=== PATIENT | male | born 1965 | race Caucasian/White ===

== ENCOUNTER 2023-07-04 03:07 | Inpatient (IN) | payer MEDICARE, OTHER ==
[2023-07-04] MEDS ORDERED: IPRATROPIUM 0.5 MG/2.5 ML NEBU INHALATION STA ×2 (03:20→04:24)
[2023-07-04] MEDS ORDERED: ALBUTEROL NEBULIZED 2.5 MG/3 ML INHALATION STA ×2 (03:20→04:24)
[2023-07-04] MEDS ORDERED: DEXAMETHASONE SOD PHOSPHATE 10 MG/ML 1 ML VIAL IV STA (03:20)
--- NOTE | 2023-07-04 03:23 | ED ---
General Adult HPI - General Chief complaint: Shortness of Breath Stated complaint: RSV Time Seen by Provider: 07/04/23 03:13 Source: patient, family Mode of arrival: wheelchair Limitations: physical limitation - History of Present Illness Initial comments: Dictation was produced using [employer] dictation software. please excuse any grammatical, word or spelling errors. Chief Complaint: 57-year-old male with history of Down's syndrome presents to the ER for dyspnea History of Present Illness: Is 57-year-old male has history of Down syndrome. He has no history of lung or cardiac comorbidities. This been having shortness of breath for the last 4 days. Went to see his primary care doctor tested positive for RSV. He has had one dose of prednisone and one breathing treatment. His work breathing increased prompting family to bring patient to the emergency department. The ROS documented in this emergency department record has been reviewed and confirmed by me. Those systems with pertinent positive or negative responses have been documented in the HPI. All other systems are other negative and/or noncontributory. - Related Data Home Medications Medication Instructions Recorded Confirmed Cetirizine HCl [Zyrtec] 10 mg PO DAILY 04/24/16 04/25/16 Cholecalciferol [Vitamin D3] 2,000 unit PO DAILY 04/24/16 04/25/16 Fluticasone Nasal [place] [Flonase 2 spr EA NOSTRIL DAILY PRN 04/24/16 04/25/16 Nasal [place]] Folic Acid 1 mg PO DAILY 04/24/16 04/25/16 Levothyroxine Sodium [Synthroid] 50 mcg PO 1900 04/24/16 04/25/16 metHOTREXate sodium [Methotrexate] 25 mg PO SA 04/24/16 04/25/16 Allergies Allergy/AdvReac Type Severity Reaction Status Date / Time No Known Allergies Allergy Verified 07/04/23 03:11 Review of Systems ROS Statement: Those systems with pertinent positive or pertinent negative responses have been documented in the HPI. ROS Other: All systems not noted in ROS Statement are negative. Past Medical History Past Medical History: Liver Disease, Rheumatoid Arthritis (RA), Skin Disorder, Thyroid Disorder Additional Past Medical History / Comment(s): "fatty liver", fluid in both ears, psoriasis, downs syndrome History of Any Multi-Drug Resistant Organisms: None Reported Past Surgical History: Joint Replacement Additional Past Surgical History / Comment(s): left hip replacement, Past Anesthesia/Blood Transfusion Reactions: No Reported Reaction Past Psychological History: Anxiety Smoking Status: Never smoker Past Alcohol Use History: None Reported Past Drug Use History: None Reported - Past Family History Sister(s) Family Medical History: Cancer, Deep Vein Thrombosis (DVT), Pulmonary Embolus Additional Family Medical History / Comment(s): thyroid,cervical,skin Brother(s) Family Medical History: Blood Disorder, Cancer Additional Family Medical History / Comment(s): esophageal,breast, family hx of anticardiolipin antibody General Exam - General Exam Comments Initial Comments: PHYSICAL EXAM: General Impression: Alert and oriented, dyspneic HEENT: Normocephalic atraumatic, extra-ocular movements intact, pupils equal and reactive to light bilaterally, mucous membranes moist. Cardiovascular: Heart regular rate and rhythm Chest: Diffuse wheezing, retracting Abdomen: abdomen soft, non-tender, non-distended, no organomegaly Musculoskeletal: Pulses present and equal in all extremities, no peripheral edema Motor: no focal deficits noted Neurological: CN II-XII grossly intact, no focal motor or sensory deficits noted Skin: Intact with no visualized rashes Psych: Normal affect and mood Limitations: physical limitation Course Vital Signs 07/04/23 07/04/23 07/04/23 03:09 03:11 03:27 Temperature 98.5 F Pulse Rate 103 H 90 84 Respiratory 32 H 34 H Rate Blood Pressure 142/76 O2 Sat by Pulse 80 L 98 Oximetry 07/04/23 07/04/23 07/04/23 03:39 04:16 04:32 Temperature Pulse Rate 87 92 84 Respiratory 40 H 33 H 42 H Rate Blood Pressure 103/74 O2 Sat by Pulse Oximetry 07/04/23 07/04/23 05:00 05:24 Temperature Pulse Rate 81 85 Respiratory 32 H 26 H Rate Blood Pressure 115/62 O2 Sat by Pulse 95 Oximetry Medical Decision Making - Medical Decision Making Was pt. sent in by a medical professional or institution (, PA, SENIOR ENTERPRISE ARCHITECT, urgent care, hospital, or care home...) When possible be specific @ -No Did you speak to anyone other than the patient for history (EMS, parent, family, police, friend...)? What history was obtained from this source @ -With mother who provides is present illness as described above Did you review nursing and triage notes (agree or disagree)? Why? @ -I reviewed and agree with nursing and triage notes Were old charts reviewed (outside hosp., previous admission, EMS record, old EKG, old radiological studies, urgent care reports/EKG's, care home records)? Report findings @ -No old charts were reviewed Differential Diagnosis (chest pain, altered mental status, abdominal pain women, abdominal pain men, vaginal bleeding, musculoskeletal, weakness, fever, dyspnea, syncope, headache, dizziness, GI bleed, back pain, seizure, CVA, palpatations, mental health)? @ -Differential Dyspnea: Coronary syndrome, arrhythmia, tamponade, asthma, COPD, pulmonary embolism, pneumonia, pneumothorax, pulmonary effusion, anaphylaxis, diabetic ketoacidosis, flailed chest, pulmonary contusion, diaphragmatic rupture, anemia, neuromuscular, this is not meant to be an all-inclusive list. EKG interpreted by me (3pts min.). @ -See above X-rays interpreted by me (1pt min.). @ -2 view chest x-ray shows infiltrate in the left lower lobe CT interpreted by me (1pt min.). @ -None done U/S interpreted by me (1pt. min.). @ -None done What testing was considered but not performed or refused? (CT, X-rays, U/S, labs)? Why? @ -None What meds were considered but not given or refused? Why? @ -None Did you discuss the management of the patient with other professionals (professionals i.e. , PA, SENIOR ENTERPRISE ARCHITECT, lab, RT, psych nurse, social media assistant, theatrical scenic designer, teacher, juvenile justice officer, case management assistant)? Give summary @ -Case discussed with hospitalist for admission Was smoking cessation discussed for >3mins.? @ -No Was critical care preformed (if so, how long)? @ -No Were there social determinants of health that impacted care today? How? (Homelessness, low income, unemployed, alcoholism, drug addiction, transportation, low edu. Level, literacy, decrease access to med. care, nursing home, rehab)? @ -No Was there de-escalation of care discussed even if they declined (Discuss DNR or withdrawal of care, Hospice)? DNR status @ -No What co-morbidities impacted this encounter? (DM, HTN, Smoking, COPD, CAD, Can cer, CVA, ARF, Chemo, Hep., AIDS, mental health diagnosis, sleep apnea, morbid obesity)? @ -None Was patient admitted / discharged? Hospital course, mention meds given and route, prescriptions, significant lab abnormalities, going to OR and other pertinent info. @ -7-year-old male presents emergency Department with respiratory failure. Vit al signs upon arrival shows tachypneic male that is initially hypoxic. He responded well to nasal cannula oxygen. He is however is required breathing treatments. Patient reevaluated at bedside and 60 IM with improvement after multiple breathing treatments. Laboratory evaluation obtained. Leukocytosis of 14.4, coag panel within acceptable limits. Lactic acidosis of 3.0. Troponin of 0.081 BNP is 589, positive for RSV and COVID-19. X-ray shows questionable infiltrate to the left lower lobe. Patient currently with antibiotics will be admitted with consultation to pulmonology. Undiagnosed new problem with uncertain prognosis? @ -No Drug Therapy requiring intensive monitoring for toxicity (Heparin, Nitro, Insulin, Cardizem)? @ -No Were any procedures done? @ -No Diagnosis/symptom? Acute, or Chronic, or Acute on Chronic? Uncomplicated (without systemic symptoms) or Complicated (systemic symptoms)? @ -Respiratory failure Side effects of treatment? @ -No Exacerbation, Progression, or Severe Exacerbation? @ -No Poses a threat to life or bodily function? How? (Chest pain, USA, NC, pneumonia, PE, COPD, DKA, ARF, appy, cholecystitis, CVA, Diverticulitis, Homicidal, Suicidal, threat to staff... and all critical care pts) @ -yes - Lab Data Result diagrams: 07/04/23 03:22 07/04/23 03:22 Lab Results 07/04/23 07/04/23 07/04/23 Range/Units 03:20 03:22 03:22 WBC 14.4 H (3.8-10.6) k/uL RBC 4.71 (4.30-5.90) m/uL Hgb 16.2 (13.0-17.5) gm/dL Hct 50.3 (39.0-53.0) % MCV 106.8 H (80.0-100.0) fL MCH 34.4 (25.0-35.0) pg MCHC 32.2 (31.0-37.0) g/dL RDW 14.3 (11.5-15.5) % Plt Count 124 L (150-450) k/uL MPV 8.5 Neutrophils % 86 % Lymphocytes % 10 % Monocytes % 2 % Eosinophils % 0 % Basophils % 0 % Neutrophils # 12.4 H (1.3-7.7) k/uL Lymphocytes # 1.4 (1.0-4.8) k/uL Monocytes # 0.3 (0-1.0) k/uL Eosinophils # 0.0 (0-0.7) k/uL Basophils # 0.1 (0-0.2) k/uL Macrocytosis Moderate PT (10.0-12.5) sec INR (<1.2) APTT (22.0-30.0) sec Sodium 139 (137-145) mmol/L Potassium 4.8 (3.5-5.1) mmol/L Chloride 103 (98-107) mmol/L Carbon Dioxide 24 (22-30) mmol/L Anion Gap 12 mmol/L BUN 19 (9-20) mg/dL Creatinine 1.00 (0.66-1.25) mg/dL Est GFR (CKD-EPI)AfAm >90 (>60 ml/min/1.73 sqM) Est GFR (CKD-EPI)NonAf 83 (>60 ml/min/1.73 sqM) Glucose 187 H (74-99) mg/dL Plasma Lactic Acid Karl (0.7-2.0) mmol/L Calcium 8.3 L (8.4-10.2) mg/dL Total Bilirubin 0.8 (0.2-1.3) mg/dL AST 150 H (17-59) U/L ALT 127 H (4-49) U/L Alkaline Phosphatase 87 (38-126) U/L Troponin I (0.000-0.034) ng/mL NT-Pro-B Natriuret Pep 589 pg/mL Total Protein 8.3 H (6.3-8.2) g/dL Albumin 3.8 (3.5-5.0) g/dL Influenza Type A (PCR) Not Detected (Not Detectd) Influenza Type B (PCR) Not Detected (Not Detectd) RSV (PCR) Detected A (Not Detectd) SARS-CoV-2 (PCR) Detected A (Not Detectd) 07/04/23 07/04/23 07/04/23 Range/Units 03:22 03:22 03:22 WBC (3.8-10.6) k/uL RBC (4.30-5.90) m/uL Hgb (13.0-17.5) gm/dL Hct (39.0-53.0) % MCV (80.0-100.0) fL MCH (25.0-35.0) pg MCHC (31.0-37.0) g/dL RDW (11.5-15.5) % Plt Count (150-450) k/uL MPV Neutrophils % % Lymphocytes % % Monocytes % % Eosinophils % % Basophils % % Neutrophils # (1.3-7.7) k/uL Lymphocytes # (1.0-4.8) k/uL Monocytes # (0-1.0) k/uL Eosinophils # (0-0.7) k/uL Basophils # (0-0.2) k/uL Macrocytosis PT 12.9 H (10.0-12.5) sec INR 1.2 H (<1.2) APTT 24.0 (22.0-30.0) sec Sodium (137-145) mmol/L Potassium (3.5-5.1) mmol/L Chloride (98-107) mmol/L Carbon Dioxide (22-30) mmol/L Anion Gap mmol/L BUN (9-20) mg/dL Creatinine (0.66-1.25) mg/dL Est GFR (CKD-EPI)AfAm (>60 ml/min/1.73 sqM) Est GFR (CKD-EPI)NonAf (>60 ml/min/1.73 sqM) Glucose (74-99) mg/dL Plasma Lactic Acid Karl 3.0 H* (0.7-2.0) mmol/L Calcium (8.4-10.2) mg/dL Total Bilirubin (0.2-1.3) mg/dL AST (17-59) U/L ALT (4-49) U/L Alkaline Phosphatase (38-126) U/L Troponin I 0.081 H* (0.000-0.034) ng/mL NT-Pro-B Natriuret Pep pg/mL Total Protein (6.3-8.2) g/dL Albumin (3.5-5.0) g/dL Influenza Type A (PCR) (Not Detectd) Influenza Type B (PCR) (Not Detectd) RSV (PCR) (Not Detectd) SARS-CoV-2 (PCR) (Not Detectd) Disposition Clinical Impression: Respiratory failure Disposition: ADMITTED IP TO THIS [facility] Condition: Serious Referrals: Jamin Medina DO [Primary Care Provider] - 1-2 days Decision Time: 06:02
[2023-07-04 04:05] LABS: Basophils # (A) 0.1 k/uL (0-0.2); Basophils % (A) 0 %; Eosinophils % (A) 0 %; HCT 50.3 % (39.0-53.0); HGB 16.2 gm/dL (13.0-17.5); Lymphocytes # (A) 1.4 k/uL (1.0-4.8); Lymphocytes % (A) 10 %; MCH 34.4 pg (25.0-35.0); MCHC 32.2 g/dL (31.0-37.0); MCV 106.8 fL (80.0-100.0); Macrocytosis Moderate; Mean Platelet Volume 8.5; Monocytes # (A) 0.3 k/uL (0-1.0); Monocytes % (A) 2 %; Neutrophils # (A) 12.4 k/uL (1.3-7.7); Neutrophils % (A) 86 %; Platelet Count 124 k/uL (150-450); RBC 4.71 m/uL (4.30-5.90); RDW 14.3 % (11.5-15.5); WBC 14.4 k/uL (3.8-10.6)
[2023-07-04 04:14] LABS: INR 1.2 (<1.2); Prothrombin Time 12.9 sec (10.0-12.5)
[2023-07-04 04:38] LABS: ALT 127 U/L (4-49); African American GFR (CKD) >90 (>60 ml/min/1.73 sqM); Albumin 3.8 g/dL (3.5-5.0); Anion Gap 12 mmol/L; Blood Urea Nitrogen 19 mg/dL (9-20); Calcium 8.3 mg/dL (8.4-10.2); Carbon Dioxide 24 mmol/L (22-30); Chloride 103 mmol/L (98-107); Glucose 187 mg/dL (74-99); Non-African American GFR(CKD) 83 (>60 ml/min/1.73 sqM); Sodium 139 mmol/L (137-145); Total Bilirubin 0.8 mg/dL (0.2-1.3); Total Protein 8.3 g/dL (6.3-8.2)
[2023-07-04] MEDS: MAGNESIUM SULFATE-D5W PMX 1 GM in DEXTROSE/WATER 1 100ML.BAG IVPB SCH ×2 (04:40→05:44)
[2023-07-04 04:48] LABS: NT-Pro-B-Type Natriuretic Pept 589 pg/mL
[2023-07-04 04:51] LABS: AST 150 U/L (17-59); Alkaline Phosphatase 87 U/L (38-126); Potassium 4.8 mmol/L (3.5-5.1)
[2023-07-04] MEDS ORDERED: PIPERACILLIN-TAZOBACTAM 3.375 GM in SODIUM CHLORIDE 0.9% 100 ML IVPB STA (05:30)
[2023-07-04] MEDS ORDERED: NALOXONE 0.4 MG/ML 1 ML VIAL IVP PRN ×2 (05:57→07:23)
[2023-07-04] MEDS ORDERED: ACETAMINOPHEN TAB 325 MG TAB PO PRN (07:23)
[2023-07-04] MEDS ORDERED: ALBUTEROL HFA INHALER INHALATION PRN (07:24)
[2023-07-04] MEDS ORDERED: ASPIRIN 81 MG PO STA (07:26)
--- NOTE | 2023-07-04 07:46 | XR ---
EXAMINATION TYPE: XR chest 1V portable DATE OF EXAM: 07/04/2023 Comparison: 11/24/2009 Clinical History: 57-year-old male with wheezing Findings: Heart borderline in size. Lordotic positioning. No roxanna consolidation or pleural effusion seen. Impression: Borderline heart size. Lordotic positioning. No definite acute process.
[2023-07-04] MEDS ORDERED: IPRATROPIUM-ALBUTEROL 3 ML NEB INHALATION SCH (08:00)
[2023-07-04] MEDS: AZITHROMYCIN 500 MG TAB PO SCH (08:50)
[2023-07-04] MEDS ORDERED: REMDESIVIR 200 MG in SODIUM CHLORIDE 0.9% 250 ML IVPB ONE (09:00)
[2023-07-04 09:58] LABS: C Reactive Protein 3.7 mg/dL (<1.0)
[2023-07-04] MEDS: ALBUTEROL HFA INHALER INHALATION SCH ×3 (11:04→19:54)
--- NOTE | 2023-07-04 14:55 | P.HPIM ---
History of Present Illness H&P Date: 07/04/23 Chief Complaint: dyspnea 57-year-old man with a history of Down syndrome, hypothyroidism presented for evaluation of dyspnea. 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 Prior to arrival, patient's family noticed significant increased work of breathing and therefore brought patient to the emergency room for further evaluation. Patient has had fevers, chills. Jonnie borrero's review of systems is otherwise negative, though patient is not a reliable historian per family member. In the emergency room, patient was afebrile, 142/76, heart rate 103, 80% on room air. CBC demonstrated leukocytosis of 14.4. Basic metabolic panel is unremarkable. Liver function test showed elevation of AST 150, L2 to 1 127, total protein 8.3. LDH was 266, troponins 0.094, CRP was 3.7, d-dimer was 0.8 to. INR is 1.2. Influenza A, B were negative. RSV was positive. Covid was positive. EKG shows sinus rhythm with left axis deviation. Chest x-ray shows pleural and cardia megaly with increased reticular opacities bilaterally. Gen: in no apparent distress, resting comfortably in bed Eyes: PERRL, no scleral injection or icterus HENT: normocephalic, atraumatic, good hearing acuity, moist mucous membranes Neck: no tracheal deviation, full range of motion Resp: Tachypneic, mild accessory muscle use, no tactile fremitus, diffuse wheezing CVS: good distal perfusion x 4, no pitting edema GI: soft, NTTP, ND, no hepatosplenomegaly : no suprapubic tenderness, no CVAT, varma catheter not present MSK: no clubbing, no cyanosis, no noted contractures of extremities Skin: no noted rashes, petechiae; temperature of skin is appropriate Neuro: moving all extremities without signs of weakness, CN II-XII intact Psych: cooperative, euthymic mood, insight and judgment intact Assessment/plan: Acute hypoxemic respiratory failure Bronchospastic/reactive airways secondary to Covid 19, RSV History of significant secondhand smoke exposure -Patient should be admitted inpatient -Pulmonology consulted -Dexamethasone 6 mg daily -Remdesivir ordered by pulmonology -DuoNeb's 4 times a day, albuterol when necessary -Peak flow values 4 times a day -Ceftriaxone, azithromycin with pro-calcitonin pending -LDH, CRP, d-dimer Elevated troponin -Trend troponins, this likely represents type II demand ischemia -Aspirin 81 mg daily -Atorvastatin 40 mg at bedtime -Lipid panel, A1c, TSH Down syndrome Hypothyroidism -Home medications reviewed and reconciled Patient is full code Past Medical History Past Medical History: Liver Disease, Rheumatoid Arthritis (RA), Skin Disorder, Thyroid Disorder Additional Past Medical History / Comment(s): "fatty liver", fluid in both ears, psoriasis, downs syndrome History of Any Multi-Drug Resistant Organisms: None Reported Past Surgical History: Joint Replacement Additional Past Surgical History / Comment(s): left hip replacement, Past Anesthesia/Blood Transfusion Reactions: No Reported Reaction Past Psychological History: Anxiety Smoking Status: Never smoker Past Alcohol Use History: None Reported Past Drug Use History: None Reported - Past Family History Sister(s) Family Medical History: Cancer, Deep Vein Thrombosis (DVT), Pulmonary Embolus Additional Family Medical History / Comment(s): thyroid,cervical,skin Brother(s) Family Medical History: Blood Disorder, Cancer Additional Family Medical History / Comment(s): esophageal,breast, family hx of anticardiolipin antibody Medications and Allergies Home Medications Medication Instructions Recorded Confirmed Type Cetirizine HCl [Zyrtec] 10 mg PO DAILY 04/24/16 07/04/23 History Albuterol Nebulized [Ventolin 2.5 mg INHALATION RT-QID PRN 07/04/23 07/04/23 History Nebulized] Clobetasol Propionate [Temovate 1 applic TOPICAL DAILY 07/04/23 07/04/23 History 0.05% Cream] Donepezil [Aricept] 10 mg PO HS 07/04/23 07/04/23 History Levothyroxine Sodium [Synthroid] 88 mcg PO DAILY 07/04/23 07/04/23 History QUEtiapine [SEROquel] 100 mg PO BID 07/04/23 07/04/23 History predniSONE See Taper PO DIRECTED 07/04/23 07/04/23 History Allergies Allergy/AdvReac Type Severity Reaction Status Date / Time No Known Allergies Allergy Verified 07/04/23 07:54 Physical Exam Osteopathic Statement: *. No significant issues noted on an osteopathic stru ctural exam other than those noted in the History and Physical/Consult. Vitals: Vital Signs Temp Pulse Resp BP Pulse Ox 07/04/23 13:45 98.2 F 68 28 H 129/53 96 07/04/23 12:01 98.6 F 70 26 H 159/82 98 07/04/23 11:13 96 26 H 123/92 96 07/04/23 10:05 98.8 F 88 32 H 127/66 95 07/04/23 08:55 98.3 F 70 34 H 125/76 98 07/04/23 06:00 75 24 125/62 95 07/04/23 05:24 85 26 H 07/04/23 05:00 81 32 H 115/62 95 07/04/23 04:32 84 42 H 07/04/23 04:16 92 33 H 07/04/23 03:39 87 40 H 103/74 07/04/23 03:27 84 34 H 07/04/23 03:11 90 98 07/04/23 03:09 98.5 F 103 H 32 H 142/76 80 L Intake and Output 07/03/23 07/04/23 07/04/23 22:59 06:59 14:59 Other: Weight 99.79 kg Results CBC & Chem 7: 07/04/23 03:22 07/04/23 03:22 Labs: Abnormal Lab Results - Last 24 Hours (Table) 07/04/23 07/04/23 07/04/23 Range/Units 03:20 03:22 03:22 WBC 14.4 H (3.8-10.6) k/uL MCV 106.8 H (80.0-100.0) fL Plt Count 124 L (150-450) k/uL Neutrophils # 12.4 H (1.3-7.7) k/uL PT (10.0-12.5) sec INR (<1.2) D-Dimer (<0.60) mg/L FEU Glucose 187 H (74-99) mg/dL Plasma Lactic Acid Karl (0.7-2.0) mmol/L Calcium 8.3 L (8.4-10.2) mg/dL AST 150 H (17-59) U/L ALT 127 H (4-49) U/L Lactate Dehydrogenase (120-246) U/L Troponin I (0.000-0.034) ng/mL C-Reactive Protein (<1.0) mg/dL Total Protein 8.3 H (6.3-8.2) g/dL RSV (PCR) Detected A (Not Detectd) SARS-CoV-2 (PCR) Detected A (Not Detectd) 07/04/23 07/04/23 07/04/23 Range/Units 03:22 03:22 03:22 WBC (3.8-10.6) k/uL MCV (80.0-100.0) fL Plt Count (150-450) k/uL Neutrophils # (1.3-7.7) k/uL PT 12.9 H (10.0-12.5) sec INR 1.2 H (<1.2) D-Dimer (<0.60) mg/L FEU Glucose (74-99) mg/dL Plasma Lactic Acid Karl 3.0 H* (0.7-2.0) mmol/L Calcium (8.4-10.2) mg/dL AST (17-59) U/L ALT (4-49) U/L Lactate Dehydrogenase (120-246) U/L Troponin I 0.081 H* (0.000-0.034) ng/mL C-Reactive Protein (<1.0) mg/dL Total Protein (6.3-8.2) g/dL RSV (PCR) (Not Detectd) SARS-CoV-2 (PCR) (Not Detectd) 07/04/23 07/04/23 07/04/23 Range/Units 09:12 09:12 09:12 WBC (3.8-10.6) k/uL MCV (80.0-100.0) fL Plt Count (150-450) k/uL Neutrophils # (1.3-7.7) k/uL PT (10.0-12.5) sec INR (<1.2) D-Dimer 0.82 H (<0.60) mg/L FEU Glucose (74-99) mg/dL Plasma Lactic Acid Karl 4.9 H* (0.7-2.0) mmol/L Calcium (8.4-10.2) mg/dL AST (17-59) U/L ALT (4-49) U/L Lactate Dehydrogenase (120-246) U/L Troponin I 0.117 H* (0.000-0.034) ng/mL C-Reactive Protein (<1.0) mg/dL Total Protein (6.3-8.2) g/dL RSV (PCR) (Not Detectd) SARS-CoV-2 (PCR) (Not Detectd) 07/04/23 07/04/23 07/04/23 Range/Units 09:12 11:48 12:50 WBC (3.8-10.6) k/uL MCV (80.0-100.0) fL Plt Count (150-450) k/uL Neutrophils # (1.3-7.7) k/uL PT (10.0-12.5) sec INR (<1.2) D-Dimer (<0.60) mg/L FEU Glucose (74-99) mg/dL Plasma Lactic Acid Karl 3.0 H* (0.7-2.0) mmol/L Calcium (8.4-10.2) mg/dL AST (17-59) U/L ALT (4-49) U/L Lactate Dehydrogenase 266 H (120-246) U/L Troponin I 0.094 H* (0.000-0.034) ng/mL C-Reactive Protein 3.7 H (<1.0) mg/dL Total Protein (6.3-8.2) g/dL RSV (PCR) (Not Detectd) SARS-CoV-2 (PCR) (Not Detectd)
--- NOTE | 2023-07-04 15:14 | P.CNPUL ---
History of Present Illness Consult date: 07/04/23 Requesting physician: Steven Bradshaw Reason for consult: dyspnea, cough, hypoxemia, pneumonia, abnormal CXR/CT Chief complaint: Respiratory failure. History of present illness: Pulmonary consult dated 07/04/2023. 57-year-old male with a history of Down's syndrome, who was seen in the emergency room, on July 04. He apparently was brought in by his sister. The patient apparently has been having shortness of breath, for about 4 days prior to admission. He apparently tested positive for respiratory syncytial virus, and also tested positive for coronavirus. He apparently had one dose of prednisone and one breathing treatment prior. He was seen by his primary care doctor, and directed to the emergency department. He is currently in trauma bay 1. His sister is at the bedside. The patient's currently on 6 L of oxygen. As mentioned, he did test positive for both RSV and coronavirus. He was given Decadron, azithromycin, Rocephin, and, chest x-ray was done, that was normal. The patient's only major medical history is Down's syndrome, and hypothyroidism. The patient has never been vaccinated against coronavirus. The patient was started on Decadron, and we decided to give the patient REM. Currently labs include a white count 14.4, hemoglobin 16.2, hematocrit 50.3, and platelet count 124,000. D-dimer was 0.82. Sodium was 139, potassium 4.8, chlorides 103, CO2 24, BUN 19, creatinine 1. Glucose 187. Lactic acid was 3. AST was 150. ALT was 127. Troponin was 0.094. N-terminal proBNP was 800. Chest x-ray was interpreted as being normal. Review of Systems REVIEW OF SYSTEMS: CONSTITUTIONAL: [Negative.] NEUROLOGIC: [ Negative.] HEENT: [ Negative.] CARDIAC: [Negative.] PULMONARY: Cough, congestion, shortness of breath. GI: [Negative.] : [Negative.] RHEUMATOLOGIC: [ Negative.] IMMUNOLOGIC: [ Negative.] ENDOCRINE: [Negative. ] DERMATOLOGIC: [Negative.] Past Medical History Past Medical History: Liver Disease, Rheumatoid Arthritis (RA), Skin Disorder, Thyroid Disorder Additional Past Medical History / Comment(s): "fatty liver", fluid in both ears, psoriasis, downs syndrome History of Any Multi-Drug Resistant Organisms: None Reported Past Surgical History: Joint Replacement Additional Past Surgical History / Comment(s): left hip replacement, Past Anesthesia/Blood Transfusion Reactions: No Reported Reaction Past Psychological History: Anxiety Smoking Status: Never smoker Past Alcohol Use History: None Reported Past Drug Use History: None Reported - Past Family History Sister(s) Family Medical History: Cancer, Deep Vein Thrombosis (DVT), Pulmonary Embolus Additional Family Medical History / Comment(s): thyroid,cervical,skin Brother(s) Family Medical History: Blood Disorder, Cancer Additional Family Medical History / Comment(s): esophageal,breast, family hx of anticardiolipin antibody Medications and Allergies Home Medications Medication Instructions Recorded Confirmed Type Cetirizine HCl [Zyrtec] 10 mg PO DAILY 04/24/16 07/04/23 History Albuterol Nebulized [Ventolin 2.5 mg INHALATION RT-QID PRN 07/04/23 07/04/23 History Nebulized] Clobetasol Propionate [Temovate 1 applic TOPICAL DAILY 07/04/23 07/04/23 History 0.05% Cream] Donepezil [Aricept] 10 mg PO HS 07/04/23 07/04/23 History Levothyroxine Sodium [Synthroid] 88 mcg PO DAILY 07/04/23 07/04/23 History QUEtiapine [SEROquel] 100 mg PO BID 07/04/23 07/04/23 History predniSONE See Taper PO DIRECTED 07/04/23 07/04/23 History Allergies Allergy/AdvReac Type Severity Reaction Status Date / Time No Known Allergies Allergy Verified 07/04/23 07:54 Physical Exam Osteopathic Statement: *. No significant issues noted on an osteopathic structural exam other than those noted in the History and Physical/Consult. Vitals: Vital Signs Temp Pulse Resp BP Pulse Ox 07/04/23 13:45 98.2 F 68 28 H 129/53 96 07/04/23 12:01 98.6 F 70 26 H 159/82 98 07/04/23 11:13 96 26 H 123/92 96 07/04/23 10:05 98.8 F 88 32 H 127/66 95 07/04/23 08:55 98.3 F 70 34 H 125/76 98 07/04/23 06:00 75 24 125/62 95 07/04/23 05:24 85 26 H 12/21/23 05:00 81 32 H 115/62 95 07/04/23 04:32 84 42 H 07/04/23 04:16 92 33 H 07/04/23 03:39 87 40 H 103/74 07/04/23 03:27 84 34 H 07/04/23 03:11 90 98 07/04/23 03:09 98.5 F 103 H 32 H 142/76 80 L Intake and Output 07/04/23 07/04/23 07/04/23 06:59 14:59 22:59 Other: Weight 99.79 kg No acute distress, currently on 6 L of oxygen. Cough is wet and congested. HEENT examination is grossly unremarkable. Mucous membranes are moist. No oral lesions. Neck supple. Full range of motion. No adenopathy thyromegaly or neck vein distention. Cardiovascular examination reveals regular rhythm rate. S1-S2 normal. No S3 or S4. No discernible murmur noted. Heart sounds are distant. Heart rate 70 bpm. Lungs reveal coarse bilateral breath sounds. Coarse rhonchi are appreciated. No wheezes. Minimal crackles. Breath sounds equal bilaterally. 6 L saturation is 96%. Abdomen soft bowel sounds are heard. No masses or tenderness. Extremities are intact. No cyanosis clubbing or edema. Chronic skin changes noted to the lower extremities. Skin is without rash or lesion. Neurologic examination is brief but nonfocal. Results - Laboratory Findings CBC and BMP: 07/04/23 03:22 07/04/23 03:22 PT/INR, D-dimer PT 12.9 sec (10.0-12.5) H 07/04/23 03:22 INR 1.2 (<1.2) H 07/04/23 03:22 D-Dimer 0.82 mg/L FEU (<0.60) H 07/04/23 09:12 Abnormal lab findings: Abnormal Labs 07/04/23 07/04/23 07/04/23 03:20 03:22 03:22 WBC 14.4 H MCV 106.8 H Plt Count 124 L Neutrophils # 12.4 H PT INR D-Dimer Glucose 187 H Plasma Lactic Acid Karl Calcium 8.3 L AST 150 H ALT 127 H Lactate Dehydrogenase Troponin I C-Reactive Protein Total Protein 8.3 H RSV (PCR) Detected A SARS-CoV-2 (PCR) Detected A 07/04/23 07/04/23 07/04/23 03:22 03:22 03:22 WBC MCV Plt Count Neutrophils # PT 12.9 H INR 1.2 H D-Dimer Glucose Plasma Lactic Acid Karl 3.0 H* Calcium AST ALT Lactate Dehydrogenase Troponin I 0.081 H* C-Reactive Protein Total Protein RSV (PCR) SARS-CoV-2 (PCR) 07/04/23 07/04/23 07/04/23 09:12 09:12 09:12 WBC MCV Plt Count Neutrophils # PT INR D-Dimer 0.82 H Glucose Plasma Lactic Acid Karl 4.9 H* Calcium AST ALT Lactate Dehydrogenase Troponin I 0.117 H* C-Reactive Protein Total Protein RSV (PCR) SARS-CoV-2 (PCR) 07/04/23 07/04/23 07/04/23 09:12 11:48 12:50 WBC MCV Plt Count Neutrophils # PT INR D-Dimer Glucose Plasma Lactic Acid Karl 3.0 H* Calcium AST ALT Lactate Dehydrogenase 266 H Troponin I 0.094 H* C-Reactive Protein 3.7 H Total Protein RSV (PCR) SARS-CoV-2 (PCR) - Diagnostic Findings Chest x-ray: image reviewed Assessment and Plan Assessment: Acute shortness of breath, with hypoxemia, likely related to RSV and coronavirus induced tracheobronchitis, with reactive bronchospasm and bronchial inflammation. No clearcut pneumonia on chest x-ray. History of Down syndrome. History of hypothyroidism. Plan: Plan dated 07/04/2023. The patient was seen in the emergency department, trauma room #1. The patient's sister was at the bedside. The patient has a history of Down syndrome and hypothyroidism. He has not been feeling well for about 3 or 4 days prior to admission. He was having cough, chest congestion, shortness of breath. The patient tested positive for RSV and coronavirus. The patient was placed on Decadron, and antibiotics empirically. A pro-calcitonin level was checked. Chest x-ray is normal. Labs, x-rays, and medications are reviewed. I did confirm with the sister, that the patient is a full code. Time with Patient: Greater than 30
[2023-07-04] MEDS: ATORVASTATIN 40 MG TAB PO SCH (21:41)
[2023-07-05] MEDS: ALBUTEROL HFA INHALER INHALATION SCH ×4 (07:41→20:07)
[2023-07-05 07:55] LABS: Basophils # (A) 0.1 k/uL (0-0.2); Basophils % (A) 0 %; Eosinophils % (A) 0 %; HCT 48.3 % (39.0-53.0); HGB 15.7 gm/dL (13.0-17.5); Lymphocytes # (A) 1.5 k/uL (1.0-4.8); Lymphocytes % (A) 8 %; MCH 34.7 pg (25.0-35.0); MCHC 32.5 g/dL (31.0-37.0); MCV 106.7 fL (80.0-100.0); Macrocytosis Moderate; Mean Platelet Volume 9.2; Monocytes # (A) 0.5 k/uL (0-1.0); Monocytes % (A) 3 %; Neutrophils # (A) 16.6 k/uL (1.3-7.7); Neutrophils % (A) 88 %; Platelet Count 147 k/uL (150-450); RBC 4.52 m/uL (4.30-5.90); RDW 14.9 % (11.5-15.5); WBC 18.9 k/uL (3.8-10.6)
[2023-07-05 08:05] LABS: African American GFR (CKD) >90 (>60 ml/min/1.73 sqM); Anion Gap 12 mmol/L; Blood Urea Nitrogen 29 mg/dL (9-20); Calcium 8.6 mg/dL (8.4-10.2); Carbon Dioxide 25 mmol/L (22-30); Chloride 105 mmol/L (98-107); Glucose 130 mg/dL (74-99); Magnesium 2.1 mg/dL (1.6-2.3); Non-African American GFR(CKD) >90 (>60 ml/min/1.73 sqM); Potassium 4.9 mmol/L (3.5-5.1); Sodium 142 mmol/L (137-145)
[2023-07-05] MEDS: ASPIRIN 81 MG PO SCH (08:42)
[2023-07-05] MEDS: DEXAMETHASONE SOD PHOSPHATE 10 MG/ML 1 ML VIAL IVP SCH (08:42)
[2023-07-05] MEDS: AZITHROMYCIN 500 MG TAB PO SCH (08:42)
[2023-07-05] MEDS: LEVOTHYROXINE 100 MCG TAB PO SCH (10:05)
[2023-07-05] MEDS: ENOXAPARIN 40 MG/0.4 ML SYRINGE SQ SCH (10:05)
[2023-07-05] MEDS: REMDESIVIR 100 MG in SODIUM CHLORIDE 0.9% 250 ML IVPB SCH ×2 (10:05→10:10)
[2023-07-05 14:34] LABS: T4, Free (Free Thyroxine) 1.25 ng/dL (0.78-2.19)
--- NOTE | 2023-07-05 14:40 | P.PN ---
Subjective Progress Note Date: 07/05/23 No new complaints today. Pt is requiring less oxygen today. Still sounds quite congested. Gen: in no apparent distress, resting comfortably in bed Eyes: PERRL, no scleral injection or icterus HENT: normocephalic, atraumatic, good hearing acuity, moist mucous membranes Neck: no tracheal deviation, full range of motion Resp: Tachypneic, mild accessory muscle use, no tactile fremitus, diffuse wheezing CVS: good distal perfusion x 4, no pitting edema GI: soft, NTTP, ND, no hepatosplenomegaly : no suprapubic tenderness, no CVAT, varma catheter not present MSK: no clubbing, no cyanosis, no noted contractures of extremities Skin: no noted rashes, petechiae; temperature of skin is appropriate Neuro: moving all extremities without signs of weakness, CN II-XII intact Psych: cooperative, euthymic mood, insight and judgment intact Hospital Course: 57-year-old man with a history of Down syndrome, hypothyroidism presented for evaluation of dyspnea. In the emergency room, patient was afebrile, 142/76, heart rate 103, 80% on room air. CBC demonstrated leukocytosis of 14.4. Basic metabolic panel is unremarkable. Liver function test showed elevation of AST 150, L2 to 1 127, total protein 8.3. LDH was 266, troponins 0.094, CRP was 3.7, d-dimer was 0.8 to. INR is 1.2. Influenza A, B were negative. RSV was positive. Covid was positive. EKG shows sinus rhythm with left axis deviation. Chest x-ray shows pleural and cardia megaly with increased reticular opacities bilaterally. Assessment/plan: Acute hypoxemic respiratory failure Bronchospastic/reactive airways secondary to Covid 19, RSV History of significant secondhand smoke exposure -Patient should be admitted inpatient -Pulmonology consulted -Dexamethasone 6 mg daily -Remdesivir ordered by pulmonology -DuoNeb's 4 times a day, albuterol when necessary -Peak flow values 4 times a day -Ceftriaxone, azithromycin with pro-calcitonin 0.4 -LDH, CRP, d-dimer -Will add chest physiotherapy and flutter valve today Elevated troponin -Trend troponins, this likely represents type II demand ischemia -Aspirin 81 mg daily -Atorvastatin 40 mg at bedtime -Lipid panel, A1c, TSH Down syndrome Hypothyroidism -Home medications reviewed and reconciled Patient is full code Objective - Vital Signs Vital signs: Vital Signs Temp 99.1 F 07/05/23 10:02 Pulse 84 07/05/23 10:02 Resp 22 07/05/23 10:02 BP 151/83 07/05/23 10:02 Pulse Ox 92 L 07/05/23 10:02 FiO2 - Labs CBC & Chem 7: 07/05/23 07:45 07/05/23 07:45 Labs: Abnormal Lab Results - Last 24 Hours (Table) 07/04/23 07/04/23 07/04/23 Range/Units 09:12 14:46 15:38 WBC (3.8-10.6) k/uL MCV (80.0-100.0) fL Plt Count (150-450) k/uL Neutrophils # (1.3-7.7) k/uL BUN (9-20) mg/dL Glucose (74-99) mg/dL Plasma Lactic Acid Karl 2.5 H* (0.7-2.0) mmol/L Troponin I 0.068 H* (0.000-0.034) ng/mL Procalcitonin 0.40 H (0.02-0.09) ng/mL TSH (0.465-4.680) mIU/L 07/04/23 07/05/23 07/05/23 Range/Units 19:47 07:45 07:45 WBC 18.9 H (3.8-10.6) k/uL MCV 106.7 H (80.0-100.0) fL Plt Count 147 L (150-450) k/uL Neutrophils # 16.6 H (1.3-7.7) k/uL BUN 29 H (9-20) mg/dL Glucose 130 H (74-99) mg/dL Plasma Lactic Acid Karl 2.4 H* (0.7-2.0) mmol/L Troponin I (0.000-0.034) ng/mL Procalcitonin (0.02-0.09) ng/mL TSH (0.465-4.680) mIU/L 07/05/23 Range/Units 07:45 WBC (3.8-10.6) k/uL MCV (80.0-100.0) fL Plt Count (150-450) k/uL Neutrophils # (1.3-7.7) k/uL BUN (9-20) mg/dL Glucose (74-99) mg/dL Plasma Lactic Acid Karl (0.7-2.0) mmol/L Troponin I (0.000-0.034) ng/mL Procalcitonin (0.02-0.09) ng/mL TSH 5.310 H (0.465-4.680) mIU/L
--- NOTE | 2023-07-05 15:05 | P.PN ---
Subjective Progress Note Date: 07/05/23 57-year-old male with a history of Down's syndrome, who was seen in the emergency room, on July 04. He apparently was brought in by his sister. The patient apparently has been having shortness of breath, for about 4 days prior to admission. He apparently tested positive for respiratory syncytial vi jennifer, and also tested positive for coronavirus. He apparently had one dose of prednisone and one breathing treatment prior. He was seen by his primary care doctor, and directed to the emergency department. He is currently in trauma bay 1. His sister is at the bedside. The patient's currently on 6 L of oxygen. As mentioned, he did test positive for both RSV and coronavirus. He was given Decadron, azithromycin, Rocephin, and, chest x-ray was done, that was normal. The patient's only major medical history is Down's syndrome, and hypothyroidism. The patient has never been vaccinated against coronavirus. The patient was started on Decadron, and we decided to give the patient REM. Currently labs include a white count 14.4, hemoglobin 16.2, hematocrit 50.3, and platelet count 124,000. D-dimer was 0.82. Sodium was 139, potassium 4.8, chlorides 103, CO2 24, BUN 19, creatinine 1. Glucose 187. Lactic acid was 3. AST was 150. ALT was 127. Troponin was 0.094. N-terminal proBNP was 800. Chest x-ray was interpreted as being normal. The patient is seen today 07/05/2023 in follow-up in the emergency department. He is awake and alert in no acute distress. He maintaining O2 saturations in the mid 90s on 5 L/m per nasal cannula. He is afebrile. Hemodynamically stable. He has a loose nonproductive cough. White count 18.9. Hemoglobin 15.7. Platelets 147. Sodium 142. Potassium 4.9. Bicarb 25. BUN 29. Creatinine 0.92. Glucose 1:30. TSH 5.31. Free T4 1 0.25. He is continued on ceftriaxone and albuterol. Remains on Decadron, Lovenox, albuterol. This is day #2 of Remdesivir. Objective - Vital Signs Vital signs: Vital Signs Temp 99.1 F 07/05/23 10:02 Pulse 84 07/05/23 10:02 Resp 22 07/05/23 10:02 BP 151/83 07/05/23 10:02 Pulse Ox 92 L 07/05/23 10:02 FiO2 - Exam GENERAL EXAM: Alert, pleasant 57-year-old male, features of Down's syndrome, on 5 L nasal cannula, fairly comfortable in no apparent distress. HEAD: Normocephalic. EYES: Normal reaction of pupils, equal size. NOSE: Clear with pink turbinates. THROAT: No erythema or exudates. NECK: No masses, no JVD. CHEST: No chest wall deformity. LUNGS: Equal air entry with bilateral scattered rhonchi, minimal crackles. CVS: S1 and S2 normal with no audible murmur, regular rhythm. ABDOMEN: No hepatosplenomegaly, normal bowel sounds, no guarding or rigidity. SPINE: No scoliosis or deformity SKIN: No rashes CENTRAL NERVOUS SYSTEM: Difficult to assess but no focal deficits, tone is normal in all 4 extremities. EXTREMITIES: There is no peripheral edema. No clubbing, no cyanosis. Peripheral pulses are intact. - Labs CBC & Chem 7: 07/05/23 07:45 07/05/23 07:45 Labs: Abnormal Lab Results - Last 24 Hours (Table) 07/04/23 07/04/23 07/04/23 Range/Units 09:12 14:46 15:38 WBC (3.8-10.6) k/uL MCV (80.0-100.0) fL Plt Count (150-450) k/uL Neutrophils # (1.3-7.7) k/uL BUN (9-20) mg/dL Glucose (74-99) mg/dL Plasma Lactic Acid Karl 2.5 H* (0.7-2.0) mmol/L Troponin I 0.068 H* (0.000-0.034) ng/mL Procalcitonin 0.40 H (0.02-0.09) ng/mL TSH (0.465-4.680) mIU/L 07/04/23 07/05/23 07/05/23 Range/Units 19:47 07:45 07:45 WBC 18.9 H (3.8-10.6) k/uL MCV 106.7 H (80.0-100.0) fL Plt Count 147 L (150-450) k/uL Neutrophils # 16.6 H (1.3-7.7) k/uL BUN 29 H (9-20) mg/dL Glucose 130 H (74-99) mg/dL Plasma Lactic Acid Karl 2.4 H* (0.7-2.0) mmol/L Troponin I (0.000-0.034) ng/mL Procalcitonin (0.02-0.09) ng/mL TSH (0.465-4.680) mIU/L 07/05/23 Range/Units 07:45 WBC (3.8-10.6) k/uL MCV (80.0-100.0) fL Plt Count (150-450) k/uL Neutrophils # (1.3-7.7) k/uL BUN (9-20) mg/dL Glucose (74-99) mg/dL Plasma Lactic Acid Karl (0.7-2.0) mmol/L Troponin I (0.000-0.034) ng/mL Procalcitonin (0.02-0.09) ng/mL TSH 5.310 H (0.465-4.680) mIU/L Assessment and Plan Assessment: Acute shortness of breath, with hypoxemia, likely related to RSV and coronavirus induced tracheobronchitis, with reactive bronchospasm and bronchial inflammation. No clearcut pneumonia on chest x-ray. History of Down syndrome. History of hypothyroidism. Plan: The patient was seen and evaluated Labs and medications reviewed Continue Decadron, Lovenox Continue Remdesivir Continue bronchodilators Titrate the FiO2 as tolerated We will continue to follow I have personally seen and examined the patient, performed the documentation and the assessment and plan as written. Number of minutes spent on the visit: 10.
[2023-07-05 16:16] LABS: Chol/HDL Ratio 3.02 Ratio; LDL Cholesterol,Calculated 87.5 mg/dL (0.0-131.0)
[2023-07-05] MEDS: ATORVASTATIN 40 MG TAB PO SCH (22:47)
[2023-07-05] MEDS: QUEtiapine 100 MG TAB PO SCH (23:52)
[2023-07-06] MEDS: LEVOTHYROXINE 100 MCG TAB PO SCH (06:08)
[2023-07-06] MEDS: ENOXAPARIN 40 MG/0.4 ML SYRINGE SQ SCH (08:27)
[2023-07-06] MEDS: QUEtiapine 100 MG TAB PO SCH ×2 (08:27→22:01)
[2023-07-06] MEDS: DEXAMETHASONE SOD PHOSPHATE 10 MG/ML 1 ML VIAL IVP SCH (08:27)
[2023-07-06] MEDS: AZITHROMYCIN 500 MG TAB PO SCH (08:27)
[2023-07-06] MEDS: ASPIRIN 81 MG PO SCH (08:27)
[2023-07-06] MEDS: ALBUTEROL HFA INHALER INHALATION SCH ×4 (08:44→21:15)
--- NOTE | 2023-07-06 10:51 | P.PN ---
Subjective Progress Note Date: 07/06/23 57-year-old male with a history of Down's syndrome, who was seen in the emergency room, on July 04. He apparently was brought in by his sister. The patient apparently has been having shortness of breath, for about 4 days prior to admission. He apparently tested positive for respiratory syncytial vi jennifer, and also tested positive for coronavirus. He apparently had one dose of prednisone and one breathing treatment prior. He was seen by his primary care doctor, and directed to the emergency department. He is currently in trauma bay 1. His sister is at the bedside. The patient's currently on 6 L of oxygen. As mentioned, he did test positive for both RSV and coronavirus. He was given Decadron, azithromycin, Rocephin, and, chest x-ray was done, that was normal. The patient's only major medical history is Down's syndrome, and hypothyroidism. The patient has never been vaccinated against coronavirus. The patient was started on Decadron, and we decided to give the patient REM. Currently labs include a white count 14.4, hemoglobin 16.2, hematocrit 50.3, and platelet count 124,000. D-dimer was 0.82. Sodium was 139, potassium 4.8, chlorides 103, CO2 24, BUN 19, creatinine 1. Glucose 187. Lactic acid was 3. AST was 150. ALT was 127. Troponin was 0.094. N-terminal proBNP was 800. Chest x-ray was interpreted as being normal. The patient is seen today 07/05/2023 in follow-up in the emergency department. He is awake and alert in no acute distress. He maintaining O2 saturations in the mid 90s on 5 L/m per nasal cannula. He is afebrile. Hemodynamically stable. He has a loose nonproductive cough. White count 18.9. Hemoglobin 15.7. Platelets 147. Sodium 142. Potassium 4.9. Bicarb 25. BUN 29. Creatinine 0.92. Glucose 1:30. TSH 5.31. Free T4 1 0.25. He is continued on ceftriaxone and albuterol. Remains on Decadron, Lovenox, albuterol. This is day #2 of Remdesivir. The patient is seen today 07/06/2023 in follow-up on the regular medical floor. He is positive for RSV and COVID-19. He is currently resting in bed. Awake and alert. He is maintaining O2 saturations in the upper 90s on 5 L/m per nasal cannula. He is afebrile. Hemodynamically stable. His oxygen can be turned down to 4 L and a continue titrating as tolerated. Chest x-ray shows similar findings. No acute pulmonary process. He is continued on albuterol, Decadron, Lovenox. He is day #3 of Remdesivir. He is on ceftriaxone and azithromycin. Procalcitonin was 0.40. Objective - Vital Signs Vital signs: Vital Signs Temp 98.5 F 07/06/23 07:48 Pulse 61 07/06/23 07:48 Resp 19 07/06/23 07:48 BP 148/75 07/06/23 07:48 Pulse Ox 98 07/06/23 07:48 FiO2 Intake & Output 07/05/23 07/06/23 07/06/23 18:59 06:59 18:59 Weight 85.5 kg Other: Voiding Method Toilet # Voids 1 - Exam GENERAL EXAM: Alert, fatigued 57-year-old male, features of Down's syndrome, on 4 L nasal cannula, in no apparent distress. HEAD: Normocephalic. EYES: Normal reaction of pupils, equal size. NOSE: Clear with pink turbinates. THROAT: No erythema or exudates. NECK: No masses, no JVD. CHEST: No chest wall deformity. LUNGS: Equal air entry with bilateral scattered rhonchi, minimal crackles. CVS: S1 and S2 normal with no audible murmur, regular rhythm. ABDOMEN: No hepatosplenomegaly, normal bowel sounds, no guarding or rigidity. SPINE: No scoliosis or deformity SKIN: No rashes CENTRAL NERVOUS SYSTEM: Difficult to assess but no focal deficits, tone is normal in all 4 extremities. EXTREMITIES: There is no peripheral edema. No clubbing, no cyanosis. Peripheral pulses are intact. - Labs CBC & Chem 7: 07/05/23 07:45 07/05/23 07:45 Assessment and Plan Assessment: Acute shortness of breath, with hypoxemia, likely related to RSV and coronavirus induced tracheobronchitis, with reactive bronchospasm and bronchial inflammation. No clearcut pneumonia on today's chest x-ray. Pro-calcitonin was 0.40. He remains on ceftriaxone and azithromycin. Day #3 of Remdesivir. History of Down syndrome. History of hypothyroidism. Plan: The patient was seen and evaluated Chest x-ray, labs and medications reviewed Continue Remdesivir, Decadron, Lovenox Continue bronchodilators Remains on antibiotics Titrate the FiO2 as tolerated We will continue to follow I have personally seen and examined the patient, performed the documentation and the assessment and plan as written. Number of minutes spent on the visit: 10.
--- NOTE | 2023-07-06 10:59 | XR ---
EXAMINATION TYPE: XR chest 1V portable DATE OF EXAM: 07/06/2023 10:44 AM CLINICAL INDICATION:Male, 57 years old with history of f/u hypoxia; COMPARISON: Chest radiographs from 05/04/2023. TECHNIQUE: XR chest 1V portable Frontal view of the chest. FINDINGS: Lungs/Pleura: There is no evidence of pleural effusion, focal consolidation, or pneumothorax. Pulmonary vascularity: Pulmonary vascular congestion. Heart/mediastinum: Cardiomediastinal silhouette is enlarged and stable. Musculoskeletal: No acute osseous pathology. IMPRESSION: Similar exam to prior. Cardiomegaly and mild pulmonary vascular congestion.
--- NOTE | 2023-07-06 11:55 | P.PN ---
Subjective Progress Note Date: 07/06/23 No new complaints today. Pts oxygen is stable. CXR appears to have cardiomegaly and pulmonary vscular congestion as personally interpreted, will ad BNP today Gen: in no apparent distress, resting comfortably in bed Eyes: PERRL, no scleral injection or icterus HENT: normocephalic, atraumatic, good hearing acuity, moist mucous membranes Neck: no tracheal deviation, full range of motion Resp: Tachypneic, mild accessory muscle use, no tactile fremitus, diffuse wheezing CVS: good distal perfusion x 4, no pitting edema GI: soft, NTTP, ND, no hepatosplenomegaly : no suprapubic tenderness, no CVAT, varma catheter not present MSK: no clubbing, no cyanosis, no noted contractures of extremities Skin: no noted rashes, petechiae; temperature of skin is appropriate Neuro: moving all extremities without signs of weakness, CN II-XII intact Psych: cooperative, euthymic mood, insight and judgment intact Hospital Course: 57-year-old man with a history of Down syndrome, hypothyroidism presented for evaluation of dyspnea. In the emergency room, patient was afebrile, 142/76, heart rate 103, 80% on room air. CBC demonstrated leukocytosis of 14.4. Basic metabolic panel is unremarkable. Liver function test showed elevation of AST 150, L2 to 1 127, total protein 8.3. LDH was 266, troponins 0.094, CRP was 3.7, d-dimer was 0.8 to. INR is 1.2. Influenza A, B were negative. RSV was positive. Covid was positive. EKG shows sinus rhythm with left axis deviation. Chest x-ray shows pleural and cardia megaly with increased reticular opacities bilaterally. Assessment/plan: Acute hypoxemic respiratory failure Bronchospastic/reactive airways secondary to Covid 19, RSV History of significant secondhand smoke exposure -Patient should be admitted inpatient -Pulmonology consulted -Dexamethasone 6 mg daily -Remdesivir ordered by pulmonology -DuoNeb's 4 times a day, albuterol when necessary -Peak flow values 4 times a day -Ceftriaxone, azithromycin with pro-calcitonin 0.4 -LDH, CRP, d-dimer -Will add chest physiotherapy and flutter valve today Elevated troponin -Trend troponins, this likely represents type II demand ischemia -Aspirin 81 mg daily -Atorvastatin 40 mg at bedtime -Lipid panel, A1c, TSH Down syndrome Hypothyroidism -Home medications reviewed and reconciled Patient is full code Objective - Vital Signs Vital signs: Vital Signs Temp 98.5 F 07/06/23 07:48 Pulse 61 07/06/23 07:48 Resp 19 07/06/23 07:48 BP 148/75 07/06/23 07:48 Pulse Ox 98 07/06/23 07:48 FiO2 Intake & Output 07/05/23 07/06/23 07/06/23 18:59 06:59 18:59 Weight 85.5 kg Other: Voiding Method Toilet # Voids 1 - Labs CBC & Chem 7: 07/05/23 07:45 07/05/23 07:45
[2023-07-06] MEDS: ATORVASTATIN 40 MG TAB PO SCH (22:01)
[2023-07-06] MEDS: REMDESIVIR 100 MG in SODIUM CHLORIDE 0.9% 250 ML IVPB SCH ×2 (22:01→22:41)
[2023-07-06] MEDS: LOPERAMIDE 2 MG CAP PO PRN (22:01)
[2023-07-07] MEDS: LEVOTHYROXINE 100 MCG TAB PO SCH (06:12)
[2023-07-07] MEDS: ALBUTEROL HFA INHALER INHALATION SCH ×4 (08:08→18:20)
[2023-07-07] MEDS: ASPIRIN 81 MG PO SCH (08:51)
[2023-07-07] MEDS: DEXAMETHASONE SOD PHOSPHATE 10 MG/ML 1 ML VIAL IVP SCH (08:51)
[2023-07-07] MEDS: ENOXAPARIN 40 MG/0.4 ML SYRINGE SQ SCH (08:51)
[2023-07-07] MEDS: AZITHROMYCIN 500 MG TAB PO SCH (08:51)
[2023-07-07] MEDS: QUEtiapine 100 MG TAB PO SCH ×2 (08:51→20:47)
--- NOTE | 2023-07-07 10:44 | P.PN ---
Subjective Progress Note Date: 07/07/23 No new complaints today. Pts oxygen is stable. Appears more comfortable today, breathing has improed. Gen: in no apparent distress, resting comfortably in bed Eyes: PERRL, no scleral injection or icterus HENT: normocephalic, atraumatic, good hearing acuity, moist mucous membranes Neck: no tracheal deviation, full range of motion Resp: Tachypneic, mild accessory muscle use, no tactile fremitus, diffuse wheezing CVS: good distal perfusion x 4, no pitting edema GI: soft, NTTP, ND, no hepatosplenomegaly : no suprapubic tenderness, no CVAT, varma catheter not present MSK: no clubbing, no cyanosis, no noted contractures of extremities Skin: no noted rashes, petechiae; temperature of skin is appropriate Neuro: moving all extremities without signs of weakness, CN II-XII intact Psych: cooperative, euthymic mood, insight and judgment intact Hospital Course: 57-year-old man with a history of Down syndrome, hypothyroidism presented for evaluation of dyspnea. In the emergency room, patient was afebrile, 142/76, heart rate 103, 80% on room air. CBC demonstrated leukocytosis of 14.4. Basic metabolic panel is unremarkable. Liver function test showed elevation of AST 150, L2 to 1 127, total protein 8.3. LDH was 266, troponins 0.094, CRP was 3.7, d-dimer was 0.8 to. INR is 1.2. Influenza A, B were negative. RSV was positive. Covid was positive. EKG shows sinus rhythm with left axis deviation. Chest x-ray shows pleural and cardia megaly with increased reticular opacities bilaterally. Assessment/plan: Acute hypoxemic respiratory failure Bronchospastic/reactive airways secondary to Covid 19, RSV History of significant secondhand smoke exposure -Patient should be admitted inpatient -Pulmonology consulted -Dexamethasone 6 mg daily -Remdesivir ordered by pulmonology -DuoNeb's 4 times a day, albuterol when necessary -Peak flow values 4 times a day -Ceftriaxone, azithromycin with pro-calcitonin 0.4, abx will be completed tomorrow -LDH, CRP, d-dimer -chest physiotherapy and flutter valve Elevated troponin -Trend troponins, this likely represents type II demand ischemia -Aspirin 81 mg daily -Atorvastatin 40 mg at bedtime -Lipid panel, A1c, TSH Down syndrome Hypothyroidism -Home medications reviewed and reconciled Patient is full code Objective - Vital Signs Vital signs: Vital Signs Temp 98.6 F 07/07/23 06:56 Pulse 62 07/07/23 06:56 Resp 17 07/07/23 06:56 BP 126/81 07/07/23 06:56 Pulse Ox 98 07/07/23 06:56 FiO2 Intake & Output 07/06/23 07/07/23 07/07/23 18:59 06:59 18:59 Weight 86 kg Other: # Voids 1 1 # Bowel Movements 2 - Labs CBC & Chem 7: 07/05/23 07:45 07/05/23 07:45
--- NOTE | 2023-07-07 11:07 | P.PN ---
Subjective Progress Note Date: 07/07/23 57-year-old male with a history of Down's syndrome, who was seen in the emergency room, on July 04. He apparently was brought in by his sister. The patient apparently has been having shortness of breath, for about 4 days prior to admission. He apparently tested positive for respiratory syncytial vi jennifer, and also tested positive for coronavirus. He apparently had one dose of prednisone and one breathing treatment prior. He was seen by his primary care doctor, and directed to the emergency department. He is currently in trauma bay 1. His sister is at the bedside. The patient's currently on 6 L of oxygen. As mentioned, he did test positive for both RSV and coronavirus. He was given Decadron, azithromycin, Rocephin, and, chest x-ray was done, that was normal. The patient's only major medical history is Down's syndrome, and hypothyroidism. The patient has never been vaccinated against coronavirus. The patient was started on Decadron, and we decided to give the patient REM. Currently labs include a white count 14.4, hemoglobin 16.2, hematocrit 50.3, and platelet count 124,000. D-dimer was 0.82. Sodium was 139, potassium 4.8, chlorides 103, CO2 24, BUN 19, creatinine 1. Glucose 187. Lactic acid was 3. AST was 150. ALT was 127. Troponin was 0.094. N-terminal proBNP was 800. Chest x-ray was interpreted as being normal. The patient is seen today 07/05/2023 in follow-up in the emergency department. He is awake and alert in no acute distress. He maintaining O2 saturations in the mid 90s on 5 L/m per nasal cannula. He is afebrile. Hemodynamically stable. He has a loose nonproductive cough. White count 18.9. Hemoglobin 15.7. Platelets 147. Sodium 142. Potassium 4.9. Bicarb 25. BUN 29. Creatinine 0.92. Glucose 1:30. TSH 5.31. Free T4 1 0.25. He is continued on ceftriaxone and albuterol. Remains on Decadron, Lovenox, albuterol. This is day #2 of Remdesivir. The patient is seen today 07/06/2023 in follow-up on the regular medical floor. He is positive for RSV and COVID-19. He is currently resting in bed. Awake and alert. He is maintaining O2 saturations in the upper 90s on 5 L/m per nasal cannula. He is afebrile. Hemodynamically stable. His oxygen can be turned down to 4 L and a continue titrating as tolerated. Chest x-ray shows similar findings. No acute pulmonary process. He is continued on albuterol, Decadron, Lovenox. He is day #3 of Remdesivir. He is on ceftriaxone and azithromycin. Procalcitonin was 0.40. The patient is seen today 07/07/2023 in follow-up on the regular medical floor. He is more awake and alert today compared to yesterday. Resting comfortably in bed. He continues with a loose nonproductive cough. He is requiring 4 L high flow nasal cannula to maintain O2 saturations in the 90s. This is day #4 of Remdesivir. He is continued on Decadron, Lovenox. Remains on antibiotics in form of ceftriaxone and completed azithromycin. No new labs today. Family remains at the bedside. Objective - Vital Signs Vital signs: Vital Signs Temp 98.6 F 07/07/23 06:56 Pulse 62 07/07/23 06:56 Resp 17 07/07/23 06:56 BP 126/81 07/07/23 06:56 Pulse Ox 98 07/07/23 06:56 FiO2 Intake & Output 07/06/23 07/07/23 07/07/23 18:59 06:59 18:59 Weight 86 kg Other: # Voids 1 1 # Bowel Movements 2 - Exam GENERAL EXAM: Alert, pleasant 57-year-old male, features of Down's syndrome, resting in bed, on 4 L nasal cannula, in no apparent distress. HEAD: Normocephalic. EYES: Normal reaction of pupils, equal size. NOSE: Clear with pink turbinates. THROAT: No erythema or exudates. NECK: No masses, no JVD. CHEST: No chest wall deformity. LUNGS: Equal air entry with bilateral scattered rhonchi, minimal crackles. CVS: S1 and S2 normal with no audible murmur, regular rhythm. ABDOMEN: No hepatosplenomegaly, normal bowel sounds, no guarding or rigidity. SPINE: No scoliosis or deformity SKIN: No rashes CENTRAL NERVOUS SYSTEM: Difficult to assess but no focal deficits, tone is normal in all 4 extremities. EXTREMITIES: There is no peripheral edema. No clubbing, no cyanosis. Peripheral pulses are intact. - Labs CBC & Chem 7: 07/05/23 07:45 07/05/23 07:45 Assessment and Plan Assessment: Acute shortness of breath, with hypoxemia, likely related to RSV and coronavirus induced tracheobronchitis, with reactive bronchospasm and bronchial inflammation. No clearcut pneumonia on chest x-ray. Pro-calcitonin was 0.40. He remains on ceftriaxone and completed azithromycin. Day #4 of Remdesivir. History of Down's syndrome. History of hypothyroidism. Plan: The patient was seen and evaluated Medications reviewed Continue Remdesivir, Decadron, Lovenox Continue bronchodilators Remains on antibiotics Titrate the FiO2 as tolerated Increase his activity as tolerated Chest physiotherapy, flutter valve Family remains at the bedside We will continue to follow I have personally seen and examined the patient, performed the documentation and the assessment and plan as written. Number of minutes spent on the visit: 10.
[2023-07-07] MEDS ORDERED: ZINC OXIDE PASTE (Z-GUARD) 1 APPLIC TOPICAL PRN (15:01)
[2023-07-07] MEDS: LOPERAMIDE 2 MG CAP PO PRN (15:57)
[2023-07-07] MEDS: REMDESIVIR 100 MG in SODIUM CHLORIDE 0.9% 250 ML IVPB SCH (20:47)
[2023-07-07] MEDS: ATORVASTATIN 40 MG TAB PO SCH (20:47)
[2023-07-08] MEDS: LEVOTHYROXINE 100 MCG TAB PO SCH (06:29)
[2023-07-08] MEDS: LOPERAMIDE 2 MG CAP PO PRN (06:29)
[2023-07-08] MEDS: DEXAMETHASONE SOD PHOSPHATE 10 MG/ML 1 ML VIAL IVP SCH (08:54)
[2023-07-08] MEDS: ASPIRIN 81 MG PO SCH (08:54)
[2023-07-08] MEDS: QUEtiapine 100 MG TAB PO SCH ×2 (08:54→20:55)
[2023-07-08] MEDS: ENOXAPARIN 40 MG/0.4 ML SYRINGE SQ SCH (08:55)
[2023-07-08 09:10] LABS: BUN/Creat Ratio 29.75 Ratio (12.00-20.00); Blood Urea Nitrogen 23.8 mg/dL (9.0-27.0); Calcium 8.3 mg/dL (8.7-10.3); Carbon Dioxide 33.6 mmol/L (21.6-31.8); Chloride 104 mmol/L (96-109); Glucose 98 mg/dL (70-110); Potassium 4.4 mmol/L (3.5-5.5); Sodium 143 mmol/L (135-145)
[2023-07-08] MEDS: ALBUTEROL HFA INHALER INHALATION SCH ×4 (09:20→18:32)
[2023-07-08 09:51] LABS: Basophils # (A) 0.07 X 10*3/uL (0.00-0.10); Basophils % (A) 0.7 %; Eosinophils # (A) 0 X 10*3/uL (0.04-0.35); Eosinophils % (A) 0 %; HCT 43.2 % (39.6-50.0); HGB 13.9 g/dL (13.0-17.0); Lymphocytes # (A) 2.43 X 10*3/uL (0.90-5.00); Lymphocytes % (A) 22.6 %; MCH 33.6 pg (27.0-32.0); MCHC 32.2 g/dL (32.0-37.0); MCV 104.3 FL (80.0-97.0); Mean Platelet Volume 11.3 FL (9.5-12.2); Monocytes # (A) 0.67 X 10*3/uL (0.20-1.00); Monocytes % (A) 6.2 %; NRBC Per 100 WBC 0 X 10*3/uL (0.00-0.01); Neutrophils # (A) 7.08 X 10*3/uL (1.80-7.70); Neutrophils % (A) 65.9 %; Platelet Count 149 X 10*3/uL (140-440); RBC 4.14 X 10*6/uL (4.40-5.60); RDW 15.1 % (11.5-14.5); WBC 10.74 X 10*3/uL (4.50-10.00)
--- NOTE | 2023-07-08 10:42 | P.PN ---
Subjective Progress Note Date: 07/08/23 No new complaints today. Pts oxygen is stable. Appears more comfortable today, breathing has improed. Gen: in no apparent distress, resting comfortably in bed Eyes: PERRL, no scleral injection or icterus HENT: normocephalic, atraumatic, good hearing acuity, moist mucous membranes Neck: no tracheal deviation, full range of motion Resp: Tachypneic, mild accessory muscle use, no tactile fremitus, diffuse wheezing CVS: good distal perfusion x 4, no pitting edema GI: soft, NTTP, ND, no hepatosplenomegaly : no suprapubic tenderness, no CVAT, varma catheter not present MSK: no clubbing, no cyanosis, no noted contractures of extremities Skin: no noted rashes, petechiae; temperature of skin is appropriate Neuro: moving all extremities without signs of weakness, CN II-XII intact Psych: cooperative, euthymic mood, insight and judgment intact Hospital Course: 57-year-old man with a history of Down syndrome, hypothyroidism presented for evaluation of dyspnea. In the emergency room, patient was afebrile, 142/76, heart rate 103, 80% on room air. CBC demonstrated leukocytosis of 14.4. Basic metabolic panel is unremarkable. Liver function test showed elevation of AST 150, L2 to 1 127, total protein 8.3. LDH was 266, troponins 0.094, CRP was 3.7, d-dimer was 0.8 to. INR is 1.2. Influenza A, B were negative. RSV was positive. Covid was positive. EKG shows sinus rhythm with left axis deviation. Chest x-ray shows pleural and cardia megaly with increased reticular opacities bilaterally. Assessment/plan: Acute hypoxemic respiratory failure Bronchospastic/reactive airways secondary to Covid 19, RSV History of significant secondhand smoke exposure -Patient should be admitted inpatient -Pulmonology consulted -Dexamethasone 6 mg daily -Remdesivir ordered by pulmonology -DuoNeb's 4 times a day, albuterol when necessary -Peak flow values 4 times a day -Ceftriaxone, azithromycin with pro-calcitonin 0.4, abx will be completed today 07/08 -LDH, CRP, d-dimer -chest physiotherapy and flutter valve Elevated troponin -Trend troponins, this likely represents type II demand ischemia -Aspirin 81 mg daily -Atorvastatin 40 mg at bedtime -Lipid panel, A1c, TSH Down syndrome Hypothyroidism -Home medications reviewed and reconciled Patient is full code Objective - Vital Signs Vital signs: Vital Signs Temp 97.5 F L 07/08/23 08:10 Pulse 56 L 07/08/23 08:10 Resp 18 07/08/23 08:10 BP 144/80 07/08/23 08:10 Pulse Ox 98 07/08/23 08:10 FiO2 Intake & Output 07/07/23 07/08/23 07/08/23 18:59 06:59 18:59 Intake Total 250 50 Balance 250 50 Intake: Intake, IV Titration 250 50 Amount Remdesivir 100 mg In 250 Sodium Chloride 0.9% 250 ml @ 250 mls/hr IVPB HS [facility] Rx#:[id number] cefTRIAXone 1 gm In 50 Sodium Chloride 0.9% 50 ml @ 100 mls/hr IVPB Q24HR [facility] Rx#:[id number] Other: Voiding Method Toilet # Voids 1 1 # Bowel Movements 3 1 1 - Labs CBC & Chem 7: 07/08/23 06:26 07/08/23 06:26 Labs: Abnormal Lab Results - Last 24 Hours (Table) 07/08/23 07/08/23 Range/Units 06:26 06:26 WBC 10.74 H (4.50-10.00) X 10*3/uL RBC 4.14 L (4.40-5.60) X 10*6/uL MCV 104.3 H (80.0-97.0) FL MCH 33.6 H (27.0-32.0) pg RDW 15.1 H (11.5-14.5) % Immature Gran # 0.49 H (0.00-0.04) X 10*3/uL Eosinophils # 0 L (0.04-0.35) X 10*3/uL Carbon Dioxide 33.6 H (21.6-31.8) mmol/L BUN/Creatinine Ratio 29.75 H (12.00-20.00) Ratio Calcium 8.3 L (8.7-10.3) mg/dL
--- NOTE | 2023-07-08 11:17 | P.PN ---
Subjective Progress Note Date: 07/08/23 57-year-old male with a history of Down's syndrome, who was seen in the emergency room, on July 04. He apparently was brought in by his sister. The patient apparently has been having shortness of breath, for about 4 days prior to admission. He apparently tested positive for respiratory syncytial vi jennifer, and also tested positive for coronavirus. He apparently had one dose of prednisone and one breathing treatment prior. He was seen by his primary care doctor, and directed to the emergency department. He is currently in trauma bay 1. His sister is at the bedside. The patient's currently on 6 L of oxygen. As mentioned, he did test positive for both RSV and coronavirus. He was given Decadron, azithromycin, Rocephin, and, chest x-ray was done, that was normal. The patient's only major medical history is Down's syndrome, and hypothyroidism. The patient has never been vaccinated against coronavirus. The patient was started on Decadron, and we decided to give the patient REM. Currently labs include a white count 14.4, hemoglobin 16.2, hematocrit 50.3, and platelet count 124,000. D-dimer was 0.82. Sodium was 139, potassium 4.8, chlorides 103, CO2 24, BUN 19, creatinine 1. Glucose 187. Lactic acid was 3. AST was 150. ALT was 127. Troponin was 0.094. N-terminal proBNP was 800. Chest x-ray was interpreted as being normal. The patient is seen today 07/05/2023 in follow-up in the emergency department. He is awake and alert in no acute distress. He maintaining O2 saturations in the mid 90s on 5 L/m per nasal cannula. He is afebrile. Hemodynamically stable. He has a loose nonproductive cough. White count 18.9. Hemoglobin 15.7. Platelets 147. Sodium 142. Potassium 4.9. Bicarb 25. BUN 29. Creatinine 0.92. Glucose 1:30. TSH 5.31. Free T4 1 0.25. He is continued on ceftriaxone and albuterol. Remains on Decadron, Lovenox, albuterol. This is day #2 of Remdesivir. The patient is seen today 07/06/2023 in follow-up on the regular medical floor. He is positive for RSV and COVID-19. He is currently resting in bed. Awake and alert. He is maintaining O2 saturations in the upper 90s on 5 L/m per nasal cannula. He is afebrile. Hemodynamically stable. His oxygen can be turned down to 4 L and a continue titrating as tolerated. Chest x-ray shows similar findings. No acute pulmonary process. He is continued on albuterol, Decadron, Lovenox. He is day #3 of Remdesivir. He is on ceftriaxone and azithromycin. Procalcitonin was 0.40. The patient is seen today 07/07/2023 in follow-up on the regular medical floor. He is more awake and alert today compared to yesterday. Resting comfortably in bed. He continues with a loose nonproductive cough. He is requiring 4 L high flow nasal cannula to maintain O2 saturations in the 90s. This is day #4 of Remdesivir. He is continued on Decadron, Lovenox. Remains on antibiotics in form of ceftriaxone and completed azithromycin. No new labs today. Family remains at the bedside. The patient is seen today 07/08/2023 in follow-up on the regular medical floor. He is awake and alert in no acute distress. He is afebrile. Hemodynamically stable. He sitting up in a chair at the bedside. His family is with him. He denies any worsening shortness of breath. He continues with a loose congested cough. He is maintaining O2 saturations in the mid 90s on 4 L/m per nasal cannula. This is Remdesivir day #5. He is continued on ceftriaxone, Decadron and Lovenox. White count 10.7. Hemoglobin 13.9. Platelets 149. Sodium 143. Potassium 4.4. Bicarb 34. BUN 24. Creatinine 0.8. Objective - Vital Signs Vital signs: Vital Signs Temp 97.5 F L 07/08/23 08:10 Pulse 56 L 07/08/23 08:10 Resp 18 07/08/23 08:10 BP 144/80 07/08/23 08:10 Pulse Ox 98 07/08/23 08:10 FiO2 Intake & Output 07/07/23 07/08/23 07/08/23 18:59 06:59 18:59 Intake Total 250 50 Balance 250 50 Intake: Intake, IV Titration 250 50 Amount Remdesivir 100 mg In 250 Sodium Chloride 0.9% 250 ml @ 250 mls/hr IVPB HS [facility] Rx#:[id number] cefTRIAXone 1 gm In 50 Sodium Chloride 0.9% 50 ml @ 100 mls/hr IVPB Q24HR [facility] Rx#:[id number] Other: Voiding Method Toilet # Voids 1 1 # Bowel Movements 3 1 1 - Exam GENERAL EXAM: Alert, pleasant 57-year-old male, features of Down's syndrome, sitting up in a chair, in no apparent distress. HEAD: Normocephalic. EYES: Normal reaction of pupils, equal size. NOSE: Clear with pink turbinates. THROAT: No erythema or exudates. NECK: No masses, no JVD. CHEST: No chest wall deformity. LUNGS: Equal air entry with bilateral scattered rhonchi, minimal crackles. On 4 L nasal cannula CVS: S1 and S2 normal with no audible murmur, regular rhythm. ABDOMEN: No hepatosplenomegaly, normal bowel sounds, no guarding or rigidity. SPINE: No scoliosis or deformity SKIN: No rashes CENTRAL NERVOUS SYSTEM: Difficult to assess but no focal deficits, tone is normal in all 4 extremities. EXTREMITIES: There is no peripheral edema. No clubbing, no cyanosis. Peripher al pulses are intact. - Labs CBC & Chem 7: 07/08/23 06:26 07/08/23 06:26 Labs: Abnormal Lab Results - Last 24 Hours (Table) 07/08/23 07/08/23 Range/Units 06:26 06:26 WBC 10.74 H (4.50-10.00) X 10*3/uL RBC 4.14 L (4.40-5.60) X 10*6/uL MCV 104.3 H (80.0-97.0) FL MCH 33.6 H (27.0-32.0) pg RDW 15.1 H (11.5-14.5) % Immature Gran # 0.49 H (0.00-0.04) X 10*3/uL Eosinophils # 0 L (0.04-0.35) X 10*3/uL Carbon Dioxide 33.6 H (21.6-31.8) mmol/L BUN/Creatinine Ratio 29.75 H (12.00-20.00) Ratio Calcium 8.3 L (8.7-10.3) mg/dL Assessment and Plan Assessment: Acute hypoxemic respiratory failure secondary to RSV and coronavirus induced tracheobronchitis, with reactive bronchospasm and bronchial inflammation. No clearcut pneumonia on chest x-ray. Pro-calcitonin was 0.40. He remains on ceftriaxone and completed azithromycin. Day #5 of Remdesivir. History of Down's syndrome. History of hypothyroidism. Plan: The patient was seen and evaluated Medications and labs reviewed Improved and sitting up in a chair Continue the current treatment plan Titrate down the FiO2 as tolerated Increase his activity as tolerated Chest physiotherapy, flutter valve Family remains at the bedside This patient was seen independently by the pulmonary nurse practitioner I have personally seen and examined the patient, performed the documentation and the assessment and plan as written. Number of minutes spent on the visit: 24.
[2023-07-08] MEDS: ATORVASTATIN 40 MG TAB PO SCH (20:54)
[2023-07-08] MEDS: REMDESIVIR 100 MG in SODIUM CHLORIDE 0.9% 250 ML IVPB SCH (20:56)
[2023-07-09] MEDS: LEVOTHYROXINE 100 MCG TAB PO SCH (06:17)
[2023-07-09] MEDS: ALBUTEROL HFA INHALER INHALATION SCH ×4 (08:09→20:53)
[2023-07-09] MEDS: ASPIRIN 81 MG PO SCH (09:52)
[2023-07-09] MEDS: QUEtiapine 100 MG TAB PO SCH ×2 (09:52→21:02)
[2023-07-09] MEDS: amLODIPine 5 MG TAB PO SCH (09:52)
[2023-07-09] MEDS: DEXAMETHASONE SOD PHOSPHATE 10 MG/ML 1 ML VIAL IVP SCH (09:53)
[2023-07-09] MEDS: ENOXAPARIN 40 MG/0.4 ML SYRINGE SQ SCH (09:53)
--- NOTE | 2023-07-09 17:45 | P.PN ---
Subjective Progress Note Date: 07/09/23 Hospital course: Patient is a pleasant 57-year-old male with a past medical history of Down syndrome and hypothyroidism. He presented to the emergency department on 07/04/20 days secondary to the symptoms of shortness of breath. In the emergency room, patient was afebrile, 142/76, heart rate 103, 80% on room air. CBC demonstrated leukocytosis of 14.4. Basic metabolic panel is unremarkable. Liver function test showed elevation of AST 150, L2 to 1 127, total protein 8.3. LDH was 266, troponins 0.094, CRP was 3.7, d-dimer was 0.8 to. INR is 1.2. Influenza A, B were negative. RSV was positive. Covid was positive. EKG shows sinus rhythm with left axis deviation. Chest x-ray shows pleural and cardia megaly with increased reticular opacities bilaterally. Physical exam: Patient seen and fully evaluated at bedside this morning. Family visiting at bedside. Patient on 2 L O2 via nasal cannula with SpO2 fluctuating between 90 and 95%. Patient continues to have coarse cough and upon auscultation of lungs diffuse rhonchi and expiratory wheezes. Patient has been using flutter valve at bedside. Patient denies any complaints this morning with the exception of cough. Vital signs reviewed and stable. General: Nontoxic, no distress and appears stated age. Derm: Skin warm and dry, normal coloration for ethnicity. Head: Atraumatic, normocephalic and symmetric. Eyes: EOMs intact, no lid lag, and anicteric sclera Mouth: no lip lesions, mucus membranes moist Cardiovascular: regular rate and rhythm with normal S1S2, no significant murmur noted, positive posterior tibial pulses bilaterally, and cap refill < 2 seconds. Lungs: Respirations even, regular, and unlabored on supplemental oxygen. Lungs with diffuse coarse rhonchi and expiratory wheezes. Abdominal: soft, nontender to palpation, no guarding, no appreciable organomegaly Ext: ROM intact. No gross muscle atrophy, no edema, no contractures Neuro: Speech clear, face symmetrical and CN II-XII grossly intact with no noted focal neuro deficits Psych: Alert and oriented. Appropriate and pleasant affect. Assessment and Plan of Care: Acute respiratory failure with hypoxia secondary to infectious process resulting from Covid 19 infection and RSV infection Bronchospastic/reactive airways secondary to Covid 19 and RSV History of significant secondhand smoke exposure Lactic acidosis, resolved after IV fluid hydration -Completed 5 day course of Remdesivir on 07/08/23 -Completed 3 day course of azithromycin and 5 day course of Rocephin -Pulmonology following, reviewed documentation in chart -Dexamethasone 6 mg daily (day 6 ) -Ventolin inhaler scheduled 4 times a day, and albuterol inhaler when necessary for shortness of breath and/or wheezing -Peak flow values 4 times a day -Continuation of chest physiotherapy and flutter valve Elevated troponins -Troponins trended resulting in 0.081, 0.117, 0.094, and 0.068. This likely represents type II demand ischemia -Continue Aspirin 81 mg daily and Atorvastatin 40 mg at bedtime -Lipid profile unremarkable -Order placed for echocardiogram to evaluate structure and function of heart Hypertension Patient has been having elevated blood pressure is 140s to 170s systolic. Started on amlodipine 5 mg daily. Down syndrome Hypothyroidism -TSH elevated at 5.310 with free T4 normal at 1.25. Patient to continue with levothyroxine 100 g daily. -Patient to continue daily medication regimen with Aricept 10 mg nightly, and Seroquel 100 mg twice daily. Data reviewed: -Vital signs reviewed. Blood pressure elevated this morning 170/85, heart rate 64, respiratory rate 18, temperature 98.2F, SpO2 of 95% on 2 L O2 via nasal cannula CODE STATUS: Full code DVT prophylaxis: Lovenox Anticipated discharge date: Clinical course to determine Anticipated discharge place: Clinical course to determine Patient was seen independently by Nurse Pracitioner. This document was prepared using [employer] dictation software. Please allow for errors in information systems manager, while rare they do occur... Objective - Vital Signs Vital signs: Vital Signs Temp 98.2 F 07/09/23 07:16 Pulse 64 07/09/23 07:16 Resp 18 07/09/23 07:16 BP 170/85 07/09/23 07:16 Pulse Ox 95 07/09/23 08:10 FiO2 Intake & Output 07/08/23 07/09/23 07/09/23 18:59 06:59 18:59 Intake Total 530 Balance 530 Intake: Intake, IV Titration 50 Amount cefTRIAXone 1 gm In 50 Sodium Chloride 0.9% 50 ml @ 100 mls/hr IVPB Q24HR [facility] Rx#:[id number] Oral 480 Other: Voiding Method Toilet # Voids 2 2 # Bowel Movements 1 - Labs CBC & Chem 7: 07/08/23 06:26 07/08/23 06:26 Labs: Abnormal Lab Results - Last 24 Hours (Table) 07/08/23 07/08/23 Range/Units 06:26 06:26 WBC 10.74 H (4.50-10.00) X 10*3/uL RBC 4.14 L (4.40-5.60) X 10*6/uL MCV 104.3 H (80.0-97.0) FL MCH 33.6 H (27.0-32.0) pg RDW 15.1 H (11.5-14.5) % Immature Gran # 0.49 H (0.00-0.04) X 10*3/uL Eosinophils # 0 L (0.04-0.35) X 10*3/uL Carbon Dioxide 33.6 H (21.6-31.8) mmol/L BUN/Creatinine Ratio 29.75 H (12.00-20.00) Ratio Calcium 8.3 L (8.7-10.3) mg/dL
--- NOTE | 2023-07-09 19:31 | P.PN ---
Subjective Progress Note Date: 07/09/23 57-year-old male with a history of Down's syndrome, who was seen in the emergency room, on July 04. He apparently was brought in by his sister. The patient apparently has been having shortness of breath, for about 4 days prior to admission. He apparently tested positive for respiratory syncytial v irus, and also tested positive for coronavirus. He apparently had one dose of prednisone and one breathing treatment prior. He was seen by his primary care doctor, and directed to the emergency department. He is currently in trauma bay 1. His sister is at the bedside. The patient's currently on 6 L of oxygen. As mentioned, he did test positive for both RSV and coronavirus. He was given Deca dron, azithromycin, Rocephin, and, chest x-ray was done, that was normal. The patient's only major medical history is Down's syndrome, and hypothyroidism. The patient has never been vaccinated against coronavirus. The patient was started on Decadron, and we decided to give the patient REM. Currently labs include a white count 14.4, hemoglobin 16.2, hematocrit 50.3, and platelet count 124,000. D-dimer was 0.82. Sodium was 139, potassium 4.8, chlorides 103, CO2 24, BUN 19, creatinine 1. Glucose 187. Lactic acid was 3. AST was 150. ALT was 127. Troponin was 0.094. N-terminal proBNP was 800. Chest x-ray was interpreted as being normal. The patient is seen today 07/05/2023 in follow-up in the emergency department. He is awake and alert in no acute distress. He maintaining O2 saturations in the mid 90s on 5 L/m per nasal cannula. He is afebrile. Hemodynamically stable. He has a loose nonproductive cough. White count 18.9. Hemoglobin 15.7. Platelets 147. Sodium 142. Potassium 4.9. Bicarb 25. BUN 29. Creatinine 0.92. Glucose 1:30. TSH 5.31. Free T4 1 0.25. He is continued on ceftriaxone and albuterol. Remains on Decadron, Lovenox, albuterol. This is day #2 of Remdesivir. The patient is seen today 07/06/2023 in follow-up on the regular medical floor. He is positive for RSV and COVID-19. He is currently resting in bed. Awake and alert. He is maintaining O2 saturations in the upper 90s on 5 L/m per nasal cannula. He is afebrile. Hemodynamically stable. His oxygen can be turned down to 4 L and a continue titrating as tolerated. Chest x-ray shows similar findings. No acute pulmonary process. He is continued on albuterol, Decadron, Lovenox. He is day #3 of Remdesivir. He is on ceftriaxone and azithromycin. Procalcitonin was 0.40. The patient is seen today 07/07/2023 in follow-up on the regular medical floor. He is more awake and alert today compared to yesterday. Resting comfortably in bed. He continues with a loose nonproductive cough. He is requiring 4 L high flow nasal cannula to maintain O2 saturations in the 90s. This is day #4 of Remdesivir. He is continued on Decadron, Lovenox. Remains on antibiotics in form of ceftriaxone and completed azithromycin. No new labs today. Family remains at the bedside. The patient is seen today 07/08/2023 in follow-up on the regular medical floor. He is awake and alert in no acute distress. He is afebrile. Hemodynamically stable. He sitting up in a chair at the bedside. His family is with him. He denies any worsening shortness of breath. He continues with a loose congested cough. He is maintaining O2 saturations in the mid 90s on 4 L/m per nasal cannula. This is Remdesivir day #5. He is continued on ceftriaxone, Decadron and Lovenox. White count 10.7. Hemoglobin 13.9. Platelets 149. Sodium 143. Potassium 4.4. Bicarb 34. BUN 24. Creatinine 0.8. On today's evaluation of 07/09/2023, the patient is being seen for a follow-up. This patient is known to have Down's syndrome. The patient is currently infected with a combination of RSV and Covid 19. He continues to have some cough and congestion and wheeze. He is currently being treated with IV Rocephin and Zithromax and is essentially an empiric antibiotic coverage as the patient's chest x-ray showed no evidence of any acute pneumonia. The patient completed a total of 5 day course of the Remdesivir, and currently is completing a course of Decadron 6 mg IV every 24 hours. He remains on ventilator HFA 2 puffs [id number] 4 times a day. He remains on Lovenox 40 mg subcu for deep prop hylaxis. The white cell cause of 10.7 which is improved compared to yesterday with a hemoglobin of 15.9 and a platelet count of 149. BUN is at 23 with a creatinine of 0.8 and a sodium levels is 143. He is currently on 2 L of oxygen by nasal cannula with a pulse ox of 95%. He is not consistent in wearing his oxygen. Objective - Vital Signs Vital signs: Vital Signs Temp 98.2 F 07/09/23 07:16 Pulse 64 07/09/23 07:16 Resp 18 07/09/23 07:16 BP 170/85 07/09/23 07:16 Pulse Ox 95 07/09/23 08:10 FiO2 Intake & Output 07/08/23 07/09/23 07/09/23 18:59 06:59 18:59 Intake Total 530 Balance 530 Intake: Intake, IV Titration 50 Amount cefTRIAXone 1 gm In 50 Sodium Chloride 0.9% 50 ml @ 100 mls/hr IVPB Q24HR [facility] Rx#:[id number] Oral 480 Other: Voiding Method Toilet Toilet # Voids 2 2 # Bowel Movements 1 - Exam GENERAL EXAM: Alert, pleasant 57-year-old male, features of Down's syndrome, sitting up in a chair, in no apparent distress. The patient is currently on 2 L of O2 nasal cannula HEAD: Normocephalic. EYES: Normal reaction of pupils, equal size. NOSE: Clear with pink turbinates. THROAT: No erythema or exudates. NECK: No masses, no JVD. CHEST: No chest wall deformity. LUNGS: Equal air entry with bilateral scattered rhonchi, minimal crackles. On 2 L nasal cannula CVS: S1 and S2 normal with no audible murmur, regular rhythm. ABDOMEN: No hepatosplenomegaly, normal bowel sounds, no guarding or rigidity. SPINE: No scoliosis or deformity SKIN: No rashes CENTRAL NERVOUS SYSTEM: Difficult to assess but no focal deficits, tone is normal in all 4 extremities. EXTREMITIES: There is no peripheral edema. No clubbing, no cyanosis. Peripheral pulses are intact. - Labs CBC & Chem 7: 07/08/23 06:26 07/08/23 06:26 Assessment and Plan Plan: Acute shortness of breath, with hypoxemia, likely related to RSV and coronavirus induced tracheobronchitis, with reactive bronchospasm and bronchial inflammation. No clearcut pneumonia on chest x-ray. Pro-calcitonin was 0.40. He remains on ceftriaxone and completed azithromycin. Day #5 of Remdesivir. The patient also is on Decadron. Clinically improving. Chest x-ray showed no evidence of any pneumonia Acute hypoxic respiratory failure, improving and the patient is currently down to 2 L of O2 nasal cannula History of Down's syndrome. History of hypothyroidism. Plan: The patient is currently on 2 L of oxygen by nasal cannula Antibiotics was started on a and paratracheal bases that the patient's pro- calcitonin level was slightly elevated at 0.4, no evidence of any pneumonia Completed Remdesivir Continue Decadron Continue Lovenox Continue bronchodilators Remains on antibiotics Titrate the FiO2 as tolerated Increase his activity as tolerated Chest physiotherapy, flutter valve Family remains at the bedside We will continue to follow
[2023-07-09] MEDS: DONEPEZIL 10 MG TAB PO SCH (21:01)
[2023-07-09] MEDS: ATORVASTATIN 40 MG TAB PO SCH (21:02)
[2023-07-10] MEDS: LEVOTHYROXINE 100 MCG TAB PO SCH (05:35)
[2023-07-10] MEDS: amLODIPine 5 MG TAB PO SCH (07:59)
[2023-07-10] MEDS: QUEtiapine 100 MG TAB PO SCH ×2 (07:59→20:03)
[2023-07-10] MEDS: ENOXAPARIN 40 MG/0.4 ML SYRINGE SQ SCH (07:59)
[2023-07-10] MEDS: ASPIRIN 81 MG PO SCH (07:59)
[2023-07-10] MEDS: LORATADINE 10 MG TAB PO SCH (07:59)
[2023-07-10] MEDS: DEXAMETHASONE SOD PHOSPHATE 10 MG/ML 1 ML VIAL IVP SCH (08:00)
[2023-07-10 08:33] LABS: HCT 47.4 % (39.6-50.0); HGB 15.7 g/dL (13.0-17.0); MCH 33.9 pg (27.0-32.0); MCHC 33.1 g/dL (32.0-37.0); MCV 102.4 FL (80.0-97.0); Mean Platelet Volume 11.1 FL (9.5-12.2); NRBC Per 100 WBC 0 X 10*3/uL (0.00-0.01); Platelet Count 174 X 10*3/uL (140-440); RBC 4.63 X 10*6/uL (4.40-5.60); RDW 14.6 % (11.5-14.5); WBC 11.47 X 10*3/uL (4.50-10.00)
[2023-07-10 08:42] LABS: BUN/Creat Ratio 25.22 Ratio (12.00-20.00); Blood Urea Nitrogen 22.7 mg/dL (9.0-27.0); Chloride 102 mmol/L (96-109); Glucose 115 mg/dL (70-110); Potassium 4.3 mmol/L (3.5-5.5); Sodium 142 mmol/L (135-145)
[2023-07-10 08:43] LABS: ALT 78 U/L (10-49); AST 55 U/L (14-35); Albumin 3.1 g/dL (3.8-4.9); Albumin/Globulin Ratio 0.89 Ratio (1.60-3.17); Alkaline Phosphatase 64 U/L (41-126); Calcium 8.8 mg/dL (8.7-10.3); Globulin 3.5 g/dL (1.6-3.3); Total Bilirubin 0.7 mg/dL (0.3-1.2); Total Protein 6.6 g/dL (6.2-8.2)
[2023-07-10] MEDS: ALBUTEROL HFA INHALER INHALATION SCH ×4 (09:42→22:12)
--- NOTE | 2023-07-10 12:41 | XR ---
EXAMINATION TYPE: XR chest 1V portable DATE OF EXAM: 07/10/2023 12:12 PM CLINICAL INDICATION:Male, 57 years old with history of follow up progress, RSV COVID pneumonia; COMPARISON: Chest radiographs from 07/06/2023. TECHNIQUE: XR chest 1V portable Frontal view of the chest. FINDINGS: Lungs/Pleura: There is no evidence of pleural effusion, focal consolidation, or pneumothorax. Pulmonary vascularity: Unremarkable. Heart/mediastinum: Cardiomediastinal silhouette is unremarkable. Musculoskeletal: No acute osseous pathology. IMPRESSION: No acute cardiopulmonary disease/process.
--- NOTE | 2023-07-10 12:59 | P.PN ---
Subjective Progress Note Date: 07/10/23 Hospital course: Patient is a pleasant 57-year-old male with a past medical history of Down syndrome and hypothyroidism. He presented to the emergency department on 07/04/20 days secondary to the symptoms of shortness of breath. In the emergency room, patient was afebrile, 142/76, heart rate 103, 80% on room air. CBC demonstrated leukocytosis of 14.4. Basic metabolic panel is unremarkable. Liver function test showed elevation of AST 150, L2 to 1 127, total protein 8.3. LDH was 266, troponins 0.094, CRP was 3.7, d-dimer was 0.8 to. INR is 1.2. Influenza A, B were negative. RSV was positive. Covid was positive. EKG shows sinus rhythm with left axis deviation. Chest x-ray shows pleural and cardiomegaly with increased reticular opacities bilaterally. Physical exam: Patient seen and fully evaluated at bedside this morning he remains on 2 L O2 via nasal cannula with SpO2 fluctuating between 90 and 95%. Attempts were made to wean patient from oxygen, however his oxygen saturations decreased down to 8 6% at rest on room air. Patient continues to have coarse cough and upon auscultation of lungs diffuse rhonchi. Patient has been using flutter valve at bedside. Vital signs reviewed and stable. General: Nontoxic, no distress and appears stated age. Derm: Skin warm and dry, normal coloration for ethnicity. Head: Atraumatic, normocephalic and symmetric. Eyes: EOMs intact, no lid lag, and anicteric sclera Mouth: no lip lesions, mucus membranes moist Cardiovascular: regular rate and rhythm with normal S1S2, no significant murmur noted, positive posterior tibial pulses bilaterally, and cap refill < 2 seconds. Lungs: Respirations even, regular, and unlabored on supplemental oxygen. Lungs with diffuse coarse rhonchi and expiratory wheezes. Abdominal: soft, nontender to palpation, no guarding, no appreciable organomegaly Ext: ROM intact. No gross muscle atrophy, no edema, no contractures Neuro: Speech clear, face symmetrical and CN II-XII grossly intact with no noted focal neuro deficits Psych: Alert and oriented. Appropriate and pleasant affect. Assessment and Plan of Care: Acute respiratory failure with hypoxia secondary to infectious process resulting from Covid 19 infection and RSV infection Bronchospastic/reactive airways secondary to Covid 19 and RSV History of significant secondhand smoke exposure -Completed 5 day course of Remdesivir on 07/08/23 -Completed 3 day course of azithromycin and 5 day course of Rocephin -Pulmonology following, discussed with Dr. Osborn. -Dexamethasone 6 mg daily (day 7 ) -Ventolin inhaler scheduled 4 times a day, and albuterol inhaler when necessary for shortness of breath and/or wheezing -Peak flow values 4 times a day -Continuation of chest physiotherapy and flutter valve -Order placed for repeat x-ray. Elevated troponins -Troponins trended resulting in 0.081, 0.117, 0.094, and 0.068. This likely represents type II demand ischemia -Continue Aspirin 81 mg daily and Atorvastatin 40 mg at bedtime -Lipid profile unremarkable -Order placed for echocardiogram to evaluate structure and function of heart Lactic acidosis, resolved after IV fluid hydration Hypertension Patient has been having elevated blood pressure is 140s to 170s systolic. Started on amlodipine 5 mg daily. Down syndrome Hypothyroidism -TSH elevated at 5.310 with free T4 normal at 1.25. Patient to continue with levothyroxine 100 g daily. -Patient to continue daily medication regimen with Aricept 10 mg nightly, and Seroquel 100 mg twice daily. Data reviewed: -Vital signs reviewed. Blood pressure 136/75, heart rate 50, respiratory rate 16, temp 98.0F, SpO2 of 95% on 2 L. -Attempts were made to wean patient from oxygen, however his oxygen saturations decreased down to 86% at rest on room air so he was placed back on 2L. . CODE STATUS: Full code DVT prophylaxis: Lovenox Anticipated discharge date: Clinical course to determine Anticipated discharge place: Clinical course to determine Patient was seen independently by Nurse Pracitioner. This document was prepared using [employer] dictation software. Please allow for errors in corrugator helper, while rare they do occur. Kal Eldridge NP rendered care for this patient independently, reviewed the findings and plan as documented in the note above. I did not physically speak with or examine the patient on this date. Objective - Vital Signs Vital signs: Vital Signs Temp 98.0 F 07/10/23 08:00 Pulse 50 L 07/10/23 08:00 Resp 16 07/10/23 08:00 BP 136/75 07/10/23 08:00 Pulse Ox 95 07/10/23 08:00 FiO2 Intake & Output 07/09/23 07/10/23 07/10/23 18:59 06:59 18:59 Other: Voiding Method Toilet Toilet # Voids 3 2 # Bowel Movements 1 - Labs CBC & Chem 7: 07/10/23 04:49 07/10/23 04:49 Labs: Abnormal Lab Results - Last 24 Hours (Table) 07/10/23 07/10/23 Range/Units 04:49 04:49 WBC 11.47 H (4.50-10.00) X 10*3/uL MCV 102.4 H (80.0-97.0) FL MCH 33.9 H (27.0-32.0) pg RDW 14.6 H (11.5-14.5) % Carbon Dioxide 32.0 H (21.6-31.8) mmol/L BUN/Creatinine Ratio 25.22 H (12.00-20.00) Ratio Glucose 115 H (70-110) mg/dL AST 55 H (14-35) U/L ALT 78 H (10-49) U/L Albumin 3.1 L (3.8-4.9) g/dL Globulin 3.5 H (1.6-3.3) g/dL Albumin/Globulin Ratio 0.89 L (1.60-3.17) Ratio
--- NOTE | 2023-07-10 13:59 | P.PN ---
Subjective Progress Note Date: 07/10/23 57-year-old male with a history of Down's syndrome, who was seen in the emergency room, on July 04. He apparently was brought in by his sister. The patient apparently has been having shortness of breath, for about 4 days prior to admission. He apparently tested positive for respiratory syncytial v irus, and also tested positive for coronavirus. He apparently had one dose of prednisone and one breathing treatment prior. He was seen by his primary care doctor, and directed to the emergency department. He is currently in trauma bay 1. His sister is at the bedside. The patient's currently on 6 L of oxygen. As mentioned, he did test positive for both RSV and coronavirus. He was given Deca dron, azithromycin, Rocephin, and, chest x-ray was done, that was normal. The patient's only major medical history is Down's syndrome, and hypothyroidism. The patient has never been vaccinated against coronavirus. The patient was started on Decadron, and we decided to give the patient REM. Currently labs include a white count 14.4, hemoglobin 16.2, hematocrit 50.3, and platelet count 124,000. D-dimer was 0.82. Sodium was 139, potassium 4.8, chlorides 103, CO2 24, BUN 19, creatinine 1. Glucose 187. Lactic acid was 3. AST was 150. ALT was 127. Troponin was 0.094. N-terminal proBNP was 800. Chest x-ray was interpreted as being normal. The patient is seen today 07/05/2023 in follow-up in the emergency department. He is awake and alert in no acute distress. He maintaining O2 saturations in the mid 90s on 5 L/m per nasal cannula. He is afebrile. Hemodynamically stable. He has a loose nonproductive cough. White count 18.9. Hemoglobin 15.7. Platelets 147. Sodium 142. Potassium 4.9. Bicarb 25. BUN 29. Creatinine 0.92. Glucose 1:30. TSH 5.31. Free T4 1 0.25. He is continued on ceftriaxone and albuterol. Remains on Decadron, Lovenox, albuterol. This is day #2 of Remdesivir. The patient is seen today 07/06/2023 in follow-up on the regular medical floor. He is positive for RSV and COVID-19. He is currently resting in bed. Awake and alert. He is maintaining O2 saturations in the upper 90s on 5 L/m per nasal cannula. He is afebrile. Hemodynamically stable. His oxygen can be turned down to 4 L and a continue titrating as tolerated. Chest x-ray shows similar findings. No acute pulmonary process. He is continued on albuterol, Decadron, Lovenox. He is day #3 of Remdesivir. He is on ceftriaxone and azithromycin. Procalcitonin was 0.40. The patient is seen today 07/07/2023 in follow-up on the regular medical floor. He is more awake and alert today compared to yesterday. Resting comfortably in bed. He continues with a loose nonproductive cough. He is requiring 4 L high flow nasal cannula to maintain O2 saturations in the 90s. This is day #4 of Remdesivir. He is continued on Decadron, Lovenox. Remains on antibiotics in form of ceftriaxone and completed azithromycin. No new labs today. Family remains at the bedside. The patient is seen today 07/08/2023 in follow-up on the regular medical floor. He is awake and alert in no acute distress. He is afebrile. Hemodynamically stable. He sitting up in a chair at the bedside. His family is with him. He denies any worsening shortness of breath. He continues with a loose congested cough. He is maintaining O2 saturations in the mid 90s on 4 L/m per nasal cannula. This is Remdesivir day #5. He is continued on ceftriaxone, Decadron and Lovenox. White count 10.7. Hemoglobin 13.9. Platelets 149. Sodium 143. Potassium 4.4. Bicarb 34. BUN 24. Creatinine 0.8. On today's evaluation of 07/09/2023, the patient is being seen for a follow-up. This patient is known to have Down's syndrome. The patient is currently infected with a combination of RSV and Covid 19. He continues to have some cough and congestion and wheeze. He is currently being treated with IV Rocephin and Zithromax and is essentially an empiric antibiotic coverage as the patient's chest x-ray showed no evidence of any acute pneumonia. The patient completed a total of 5 day course of the Remdesivir, and currently is completing a course of Decadron 6 mg IV every 24 hours. He remains on ventilator HFA 2 puffs [id number] 4 times a day. He remains on Lovenox 40 mg subcu for deep prop hylaxis. The white cell cause of 10.7 which is improved compared to yesterday with a hemoglobin of 15.9 and a platelet count of 149. BUN is at 23 with a creatinine of 0.8 and a sodium levels is 143. He is currently on 2 L of oxygen by nasal cannula with a pulse ox of 95%. He is not consistent in wearing his oxygen. On today's evaluation of 07/10/2023, the patient is on oxygen 2 L/m nasal jo ann robina. We'll evaluate this patient for home O2. He continues to have a congestive cough. Oxygen patient is borderline anemic 154 home O2. He remains on Decadron. No new complaints. Appetite is good. Receiving Ventolin HFA 2 puffs 4 times a day. Rest of the medications are unchanged. Meanwhile, the WBC was 11.4, hemoglobin 15.7, X are all within normal limits. BUN is at 22 with a creatinine of 0.9. ProBNP level was 548. Objective - Vital Signs Vital signs: Vital Signs Temp 98.0 F 07/10/23 08:00 Pulse 50 L 07/10/23 08:00 Resp 16 07/10/23 08:00 BP 136/75 07/10/23 08:00 Pulse Ox 95 07/10/23 08:00 FiO2 Intake & Output 07/09/23 07/10/23 07/10/23 18:59 06:59 18:59 Other: Voiding Method Toilet Toilet # Voids 3 2 # Bowel Movements 1 - Exam GENERAL EXAM: Alert, pleasant 57-year-old male, features of Down's syndrome, sitting up in a chair, in no apparent distress. The patient is currently on 2 L of O2 nasal cannula HEAD: Normocephalic. EYES: Normal reaction of pupils, equal size. NOSE: Clear with pink turbinates. THROAT: No erythema or exudates. NECK: No masses, no JVD. CHEST: No chest wall deformity. LUNGS: Equal air entry with bilateral scattered rhonchi, minimal crackles. On 2 L nasal cannula CVS: S1 and S2 normal with no audible murmur, regular rhythm. ABDOMEN: No hepatosplenomegaly, normal bowel sounds, no guarding or rigidity. SPINE: No scoliosis or deformity SKIN: No rashes CENTRAL NERVOUS SYSTEM: Difficult to assess but no focal deficits, tone is normal in all 4 extremities. EXTREMITIES: There is no peripheral edema. No clubbing, no cyanosis. Peripheral pulses are intact. - Labs CBC & Chem 7: 07/10/23 04:49 07/10/23 04:49 Labs: Abnormal Lab Results - Last 24 Hours (Table) 07/10/23 07/10/23 Range/Units 04:49 04:49 WBC 11.47 H (4.50-10.00) X 10*3/uL MCV 102.4 H (80.0-97.0) FL MCH 33.9 H (27.0-32.0) pg RDW 14.6 H (11.5-14.5) % Carbon Dioxide 32.0 H (21.6-31.8) mmol/L BUN/Creatinine Ratio 25.22 H (12.00-20.00) Ratio Glucose 115 H (70-110) mg/dL AST 55 H (14-35) U/L ALT 78 H (10-49) U/L Albumin 3.1 L (3.8-4.9) g/dL Globulin 3.5 H (1.6-3.3) g/dL Albumin/Globulin Ratio 0.89 L (1.60-3.17) Ratio Assessment and Plan Plan: Acute shortness of breath, with hypoxemia, likely related to RSV and coronavirus induced tracheobronchitis, with reactive bronchospasm and bronchial inflammation. No clearcut pneumonia on chest x-ray. Pro-calcitonin was 0.40. He remains on ceftriaxone and completed azithromycin. Day #5 of Remdesivir. The patient also is on Decadron. Clinically improving. Chest x-ray showed no evidence of any pneumonia, clinically improving. Continues to have a congested cough. Acute hypoxic respiratory failure, improving and the patient is currently down to 2 L of O2 nasal cannula History of Down's syndrome. History of hypothyroidism. Plan: Evaluate this patient for home O2 He may qualify for home O2 as the patient is still desaturating on room air and he drops down to the mid 80s The patient is currently on 2 L of oxygen by nasal cannula Antibiotics was started on a and paratracheal bases that the patient's pro- calcitonin level was slightly elevated at 0.4, no evidence of any pneumonia Completed Remdesivir Continue Decadron, completed 10 day course Continue Lovenox Continue bronchodilators Remains on antibiotics Titrate the FiO2 as tolerated Increase his activity as tolerated Chest physiotherapy, flutter valve Family remains at the bedside We will continue to follow
[2023-07-10] MEDS: ATORVASTATIN 40 MG TAB PO SCH (20:03)
[2023-07-10] MEDS: DONEPEZIL 10 MG TAB PO SCH (20:04)
[2023-07-11] MEDS: LEVOTHYROXINE 100 MCG TAB PO SCH (06:25)
[2023-07-11] MEDS: LORATADINE 10 MG TAB PO SCH (08:00)
[2023-07-11] MEDS: amLODIPine 5 MG TAB PO SCH (08:00)
[2023-07-11] MEDS: QUEtiapine 100 MG TAB PO SCH (08:00)
[2023-07-11] MEDS: DEXAMETHASONE SOD PHOSPHATE 10 MG/ML 1 ML VIAL IVP SCH (08:00)
[2023-07-11] MEDS: ASPIRIN 81 MG PO SCH (08:00)
[2023-07-11] MEDS: ENOXAPARIN 40 MG/0.4 ML SYRINGE SQ SCH (08:00)
[2023-07-11] MEDS: ALBUTEROL HFA INHALER INHALATION SCH ×2 (09:27→12:32)
--- NOTE | 2023-07-11 10:01 | CA ---
Transthoracic Echo Report Name: Rudolph Bains Age: 57 Gender: M : 1965 Exam Date: 07/10/2023 16:02 Exam Location: [place] [facility] Ht (in): 62 Wt (lb): 189 Ordering Physician: Kal Eldridge Attending/Referring Phys: [employer] Ernst Sanderson Procedure CPT: Indications: evaluate structure and function, elevated troponin Cardiac Hx: Technical Quality: Very technically difficult study Contrast 1: Definity Total Dose (mL): 2 Contrast 2: Total Dose (mL): MEASUREMENTS (Male / Female) Normal Values 2D ECHO LV Systolic Diameter PLAX 2.8 cm RV Internal Dim ED PLAX 1.9 cm LVOT Diameter 1.9 cm Aortic Root Diameter 2.5 cm LA Systolic Diameter LX 1.9 cm 3.0 - 4.0 / 2.7 - 3.8 cm LV Diastolic Volume MOD 4C 52.8 cm??? LV Systolic Volume MOD 4C 26.3 cm??? LV Ejection Fraction MOD 4C 50.1 % LV Cardiac Index MOD 4C 897.6 cm???/min???m??? LV Diastolic Length 4C 7.0 cm LV Systolic Length 4C 6.4 cm DOPPLER AV Peak Velocity 130.4 cm/s AV Peak Gradient 6.8 mmHg LVOT Peak Velocity 85.3 cm/s LVOT Peak Gradient 2.9 mmHg LVOT Velocity Time Integral 15.1 cm LVOT Stroke Volume 41.1 cm??? LVOT Stroke Volume Index 22.0 ml/m??? LVOT Cardiac Index 1392.6 cm???/min???m??? AV Area Cont Eq pk 1.8 cm??? MV Peak Velocity 99.5 cm/s MV Peak Gradient 4.0 mmHg MV Mean Velocity 51.6 cm/s MV Mean Gradient 1.3 mmHg MV Velocity Time Integral 40.2 cm Mitral E Point Velocity 89.1 cm/s Mitral A Point Velocity 81.0 cm/s Mitral E to A Ratio 1.1 MV Deceleration Time 333.6 ms FINDINGS Left Ventricle Normal LV size and wall thickness. Left ventricular ejection fraction is estimated at 60-65 %. Right Ventricle Normal right ventricular size. Right Atrium Normal right atrial size. Left Atrium Normal left atrial size. Mitral Valve Structurally normal mitral valve. No mitral regurgitation. Aortic Valve Aortic valve not well visualized. No aortic valve stenosis or regurgitation. Tricuspid Valve Tricuspid valve not well visualized. No tricuspid regurgitation. Pulmonic Valve Pulmonic valve not well visualized. Pericardium Grossly normal. Aorta Normal size aortic root. CONCLUSIONS Technically difficult and limited study. Left ventricular ejection fraction 60-65% No mitral regurgitation No pericardial effusion Previewed by: Dr. Ryan Velasquez DO (Electronically Signed) Final Date: 11 July 2023 10:00
[2023-07-11 11:51] VITALS: BMI 34.7
[2023-07-11 13:50] VITALS: BP 131/66; PULSE 73; RESP 18; TEMP 98.2
--- NOTE | 2023-07-11 14:05 | P.PN ---
Subjective Progress Note Date: 07/11/23 57-year-old male with a history of Down's syndrome, who was seen in the emergency room, on July 04. He apparently was brought in by his sister. The patient apparently has been having shortness of breath, for about 4 days prior to admission. He apparently tested positive for respiratory syncytial v irus, and also tested positive for coronavirus. He apparently had one dose of prednisone and one breathing treatment prior. He was seen by his primary care doctor, and directed to the emergency department. He is currently in trauma bay 1. His sister is at the bedside. The patient's currently on 6 L of oxygen. As mentioned, he did test positive for both RSV and coronavirus. He was given Deca dron, azithromycin, Rocephin, and, chest x-ray was done, that was normal. The patient's only major medical history is Down's syndrome, and hypothyroidism. The patient has never been vaccinated against coronavirus. The patient was started on Decadron, and we decided to give the patient REM. Currently labs include a white count 14.4, hemoglobin 16.2, hematocrit 50.3, and platelet count 124,000. D-dimer was 0.82. Sodium was 139, potassium 4.8, chlorides 103, CO2 24, BUN 19, creatinine 1. Glucose 187. Lactic acid was 3. AST was 150. ALT was 127. Troponin was 0.094. N-terminal proBNP was 800. Chest x-ray was interpreted as being normal. The patient is seen today 07/05/2023 in follow-up in the emergency department. He is awake and alert in no acute distress. He maintaining O2 saturations in the mid 90s on 5 L/m per nasal cannula. He is afebrile. Hemodynamically stable. He has a loose nonproductive cough. White count 18.9. Hemoglobin 15.7. Platelets 147. Sodium 142. Potassium 4.9. Bicarb 25. BUN 29. Creatinine 0.92. Glucose 1:30. TSH 5.31. Free T4 1 0.25. He is continued on ceftriaxone and albuterol. Remains on Decadron, Lovenox, albuterol. This is day #2 of Remdesivir. The patient is seen today 07/06/2023 in follow-up on the regular medical floor. He is positive for RSV and COVID-19. He is currently resting in bed. Awake and alert. He is maintaining O2 saturations in the upper 90s on 5 L/m per nasal cannula. He is afebrile. Hemodynamically stable. His oxygen can be turned down to 4 L and a continue titrating as tolerated. Chest x-ray shows similar findings. No acute pulmonary process. He is continued on albuterol, Decadron, Lovenox. He is day #3 of Remdesivir. He is on ceftriaxone and azithromycin. Procalcitonin was 0.40. The patient is seen today 07/07/2023 in follow-up on the regular medical floor. He is more awake and alert today compared to yesterday. Resting comfortably in bed. He continues with a loose nonproductive cough. He is requiring 4 L high flow nasal cannula to maintain O2 saturations in the 90s. This is day #4 of Remdesivir. He is continued on Decadron, Lovenox. Remains on antibiotics in form of ceftriaxone and completed azithromycin. No new labs today. Family remains at the bedside. The patient is seen today 07/08/2023 in follow-up on the regular medical floor. He is awake and alert in no acute distress. He is afebrile. Hemodynamically stable. He sitting up in a chair at the bedside. His family is with him. He denies any worsening shortness of breath. He continues with a loose congested cough. He is maintaining O2 saturations in the mid 90s on 4 L/m per nasal cannula. This is Remdesivir day #5. He is continued on ceftriaxone, Decadron and Lovenox. White count 10.7. Hemoglobin 13.9. Platelets 149. Sodium 143. Potassium 4.4. Bicarb 34. BUN 24. Creatinine 0.8. On today's evaluation of 07/09/2023, the patient is being seen for a follow-up. This patient is known to have Down's syndrome. The patient is currently infected with a combination of RSV and Covid 19. He continues to have some cough and congestion and wheeze. He is currently being treated with IV Rocephin and Zithromax and is essentially an empiric antibiotic coverage as the patient's chest x-ray showed no evidence of any acute pneumonia. The patient completed a total of 5 day course of the Remdesivir, and currently is completing a course of Decadron 6 mg IV every 24 hours. He remains on ventilator HFA 2 puffs [id number] 4 times a day. He remains on Lovenox 40 mg subcu for deep prop hylaxis. The white cell cause of 10.7 which is improved compared to yesterday with a hemoglobin of 15.9 and a platelet count of 149. BUN is at 23 with a creatinine of 0.8 and a sodium levels is 143. He is currently on 2 L of oxygen by nasal cannula with a pulse ox of 95%. He is not consistent in wearing his oxygen. On today's evaluation of 07/10/2023, the patient is on oxygen 2 L/m nasal jo ann robina. We'll evaluate this patient for home O2. He continues to have a congestive cough. Oxygen patient is borderline anemic 154 home O2. He remains on Decadron. No new complaints. Appetite is good. Receiving Ventolin HFA 2 puffs 4 times a day. Rest of the medications are unchanged. Meanwhile, the WBC was 11.4, hemoglobin 15.7, X are all within normal limits. BUN is at 22 with a creatinine of 0.9. ProBNP level was 548. On today's evaluation of 07/11/2023, seeing the patient for a follow-up. The patient was given a home O2 evaluation and he did not qualify as the patient was able to maintain a pulse ox above 88%. June the done today. He is stable and his cough and congestion is improved compared to yesterday. He remains on Decadron 6 mg IV every 24 hours. He remains on Lovenox for DVT prophylaxis. No significant respiratory distress. No altered mentation. The patient has interactive and family members are at the bedside. The white cell count is 11.4, hemoglobin is 15.7. Electrolytes from yesterday were all within normal limits. His room air pulse ox of the vessels in order of 95%. Objective - Vital Signs Vital signs: Vital Signs Temp 97.4 F L 07/11/23 07:27 Pulse 58 L 07/11/23 07:27 Resp 16 07/11/23 07:27 BP 134/70 07/11/23 07:27 Pulse Ox 91 L 07/11/23 07:27 FiO2 Intake & Output 07/10/23 07/11/2323 18:59 06:59 18:59 Intake Total 440 Balance 440 Weight 86 kg Intake: Oral 440 Other: # Voids 3 2 - Exam GENERAL EXAM: Alert, pleasant 57-year-old male, features of Down's syndrome, sitting up in a chair, in no apparent distress. The patient is currently on room air oxygen HEAD: Normocephalic. EYES: Normal reaction of pupils, equal size. NOSE: Clear with pink turbinates. THROAT: No erythema or exudates. NECK: No masses, no JVD. CHEST: No chest wall deformity. LUNGS: Equal air entry with bilateral scattered rhonchi, minimal crackles. CVS: S1 and S2 normal with no audible murmur, regular rhythm. ABDOMEN: No hepatosplenomegaly, normal bowel sounds, no guarding or rigidity. SPINE: No scoliosis or deformity SKIN: No rashes CENTRAL NERVOUS SYSTEM: Difficult to assess but no focal deficits, tone is normal in all 4 extremities. EXTREMITIES: There is no peripheral edema. No clubbing, no cyanosis. Peripheral pulses are intact. - Labs CBC & Chem 7: 07/10/23 04:49 07/10/23 04:49 Assessment and Plan Plan: Acute shortness of breath, with hypoxemia, likely related to RSV and coronavirus induced tracheobronchitis, with reactive bronchospasm and bronchial inflammation. No clearcut pneumonia on chest x-ray. Pro-calcitonin was 0.40. He remains on ceftriaxone and completed azithromycin. Completed the course of Remdesivir. The patient also is on Decadron. Clinically improving. Chest x- ray showed no evidence of any pneumoniaDr. patient is improved and the patient is currently on room air oxygen. Acute hypoxic respiratory failure, improving and the patient is currently on emeli m air oxygen History of Down's syndrome. History of hypothyroidism. Plan: Evaluate this patient for home O2, second evaluation to be done today and if needed we will provide the patient home O2 Antibiotics was started on a and paratracheal bases that the patient's pro- calcitonin level was slightly elevated at 0.4, no evidence of any pneumonia Completed Remdesivir Continue Decadron, completed 10 day course Continue Lovenox Continue bronchodilators Remains on antibiotics Increase his activity as tolerated Chest physiotherapy, flutter valve Family remains at the bedside We will continue to follow, possible discharge home today
--- NOTE | 2023-07-11 14:38 | P.DS ---
Providers Date of admission: 07/04/23 05:57 Expected date of discharge: 07/11/23 Attending physician: Steven Bradshaw MD Consults: 07/04/23 05:29 Consult Physician Routine Consulting Provider: Samson Phillips Consult Reason/Comments: respiratory failure Do you want consulting provider notified?: Yes Primary care physician: [facility] Course: Discharge Diagnosis: Acute respiratory failure with hypoxia secondary to infectious process resulting from Covid 19 infection and RSV infection Bronchospastic/reactive airways secondary to Covid 19 and RSV History of significant secondhand smoke exposure Elevated troponins, believed to be secondary to acute illness representing a type II NV d/t demand ischemia. Patient free from any cardiac complaints throughout hospitalization. Troponins trended resulting in 0.081, 0.117, 0.094, and 0.068. Echocardiogram was completed showing preserved EF of 60-65% with no significant valvular or structural abnormalities reported. Patient was started on atorvastatin 40 mg nightly and amlodipine 5 mg daily. Lactic acidosis, resolved after IV fluid hydration Hypertension, continue amlodipine 5 mg daily. Hypothyroidism. TSH was elevated at 5.310 with free T4 normal at 1.25. Patient to continue with levothyroxine 100 g daily and recommended repeat thyroid function testing to be completed in 6 weeks. Down syndrome. Hospital Course: Patient is a pleasant 57-year-old male with a past medical history of Down syndrome and hypothyroidism. He presented to the emergency department on 07/04/20 days secondary to the symptoms of shortness of breath. In the emergency room, patient was afebrile, 142/76, heart rate 103, 80% on room air. CBC demonstrated leukocytosis of 14.4. Basic metabolic panel is unremarkable. Liver function test showed elevation of AST 150, L2 to 1 127, total protein 8.3. LDH was 266, troponins 0.094, CRP was 3.7, d-dimer was 0.8 to. INR is 1.2. Influenza A, B were negative. RSV was positive. Covid was positive. EKG shows sinus rhythm with left axis deviation. Chest x-ray shows pleural and cardiomeg milana with increased reticular opacities bilaterally. Patient was admitted under our services with consultation to pulmonology. Troponins trended resulting in 0.081, 0.117, 0.094, and 0.068. Echocardiogram was completed showing preserved EF of 60-65% with no significant valvular or structural abnormalities reported. Patient was started on atorvastatin 40 mg nightly and amlodipine 5 mg daily. Patient underwent an 8 day hospitalization receiving IV steroids and [id number] breathing treatments. Patient's condition improving daily. He has been completely weaned off of oxygen and SpO2 on room air at rest is 95% and with ambulation as 91%. Patient has been cleared from a pulmonary perspective for discharge recommending outpatient office in one week. Medically, patient is stable for discharge at this time. Patient being discharged home with nebulizer machine. Family declined need for home care services as patient lives with them and they were providing care prior to hospitalization and plan to continue forth going. Physical exam: Vital signs reviewed and stable. General: Nontoxic, no distress and appears stated age. Derm: Skin warm and dry, normal coloration for ethnicity. Head: Atraumatic, normocephalic and symmetric. Eyes: EOMs intact, no lid lag, and anicteric sclera Mouth: no lip lesions, mucus membranes moist Cardiovascular: regular rate and rhythm with normal S1S2, no significant murmur noted, positive posterior tibial pulses bilaterally, and cap refill < 2 seconds. Lungs: Respirations even, regular, and unlabored on supplemental oxygen. Lungs with diffuse coarse rhonchi and expiratory wheezes. Abdominal: soft, nontender to palpation, no guarding, no appreciable organomegaly Ext: ROM intact. No gross muscle atrophy, no edema, no contractures Neuro: Speech clear, face symmetrical and CN II-XII grossly intact with no noted focal neuro deficits Psych: Alert and oriented. Appropriate and pleasant affect. A total of 39 minutes of time were spent preparing this complex discharge summary. Pt was discharged on 07/11/23 2:21 PM. Patient was seen independently by Nurse Practitioner. This document was prepared using [employer] dictation software. Please allow for errors in financial services consultant while rare they do occur. Patient Condition at Discharge: Stable Plan - Discharge Summary New Discharge Prescriptions: New dexAMETHasone [Decadron] 6 mg PO DAILY 2 Days #2 tablet Atorvastatin [Lipitor] 40 mg PO HS 30 Days #30 tab Levothyroxine Sodium [Synthroid] 100 mcg PO DAILY@0630 30 Days #30 tab amLODIPine [Norvasc] 5 mg PO DAILY 30 Days #30 tab Albuterol Inhaler [Ventolin Hfa Inhaler] 2 puff INHALATION RT-QID PRN #1 each PRN Reason: Shortness Of Breath Or Wheezing Continue Cetirizine HCl [Zyrtec] 10 mg PO DAILY QUEtiapine [SEROquel] 100 mg PO BID Donepezil [Aricept] 10 mg PO HS Clobetasol Propionate [Temovate 0.05% Cream] 1 applic TOPICAL DAILY Albuterol Nebulized [Ventolin Nebulized] 2.5 mg INHALATION RT-QID PRN #360 ml PRN Reason: Shortness Of Breath Discontinued Levothyroxine Sodium [Synthroid] 88 mcg PO DAILY predniSONE See Taper PO DIRECTED Discharge Medication List Cetirizine HCl [Zyrtec] 10 mg PO DAILY 04/24/16 [History] Clobetasol Propionate [Temovate 0.05% Cream] 1 applic TOPICAL DAILY 07/04/23 [History] Donepezil [Aricept] 10 mg PO HS 07/04/23 [History] QUEtiapine [SEROquel] 100 mg PO BID 07/04/23 [History] Albuterol Inhaler [Ventolin Hfa Inhaler] 2 puff INHALATION RT-QID PRN #1 each 07/11/23 [Rx] Albuterol Nebulized [Ventolin Nebulized] 2.5 mg INHALATION RT-QID PRN #360 ml 07/11/23 [Rx] Atorvastatin [Lipitor] 40 mg PO HS 30 Days #30 tab 07/11/23 [Rx] Levothyroxine Sodium [Synthroid] 100 mcg PO DAILY@0630 30 Days #30 tab 07/11/23 [Rx] amLODIPine [Norvasc] 5 mg PO DAILY 30 Days #30 tab 07/11/23 [Rx] dexAMETHasone [Decadron] 6 mg PO DAILY 2 Days #2 tablet 07/11/23 [Rx] Follow up Appointment(s)/Referral(s): Beto Wilkerson MD [Medical Doctor] - 2 Weeks Samson Phillips DO [Doctor of Osteopathic Medicine] - 07/29/23 9:30 am Jamin Medina DO [Primary Care Provider] - 07/18/23 2:45 pm Patient Instructions/Handouts: Respiratory Syncytial Virus (DC), COVID-19 (Coronavirus Disease 2019) (DC), Long COVID (DC) Activity/Diet/Wound Care/Special Instructions: Activity: As tolerated. Take breaks as needed. Diet: Heart healthy and carb consistent diet. Avoid salts, or foods with hidden salts such as canned or boxed foods and frozen dinners. Extra salt makes your heart work harder and traps the fluid in your body for longer. Special Instructions: Take all of your medications as directed and remember to keep all of your doctor's appointments and follow-up as needed. Wishing you and your family a very healthy and happy new year!! Thank you for allowing us to participate in your care, it was truly a pleasure having you for our patient!!! Recommend outpatient evaluation by a patrol mother once fully recovered from acute illness. Your Synthroid dose was increased to 100 mcg daily during this hospitalization, recommend repeat thyroid function testing in 6 weeks. Discharge Disposition: HOME SELF-CARE
== END 2023-07-11 15:41 | disposition home or self-care (01) | DRG 177 ==
LOC: EC 03:07 → EEVIPCON 03:07 → 3SCARD 05:57 → 4SSUR 07-05 14:32
PROVIDERS: ADMIT Internal Medicine; ATTEND Internal Medicine
PROC: XW043E5 Introduction of Remdesivir Anti-infective into Central Vein, Percutaneous Approach, New Technology Group 5 (ICD-10-PCS; principal; 2023-07-04)
DX: U07.1 COVID-19 (principal); I21.A1 Myocardial infarction type 2; J96.01 Acute respiratory failure with hypoxia; E87.20 Acidosis, unspecified; B97.4 Respiratory syncytial virus as the cause of diseases classified elsewhere; E03.9 Hypothyroidism, unspecified; I10 Essential (primary) hypertension; Z71.3 Dietary counseling and surveillance; Z28.310 Unvaccinated for COVID-19; J40 Bronchitis, not specified as acute or chronic; F41.9 Anxiety disorder, unspecified; D64.9 Anemia, unspecified; J98.01 Acute bronchospasm; K76.0 Fatty (change of) liver, not elsewhere classified; M06.9 Rheumatoid arthritis, unspecified; Q90.9 Down syndrome, unspecified; Z77.22 Contact with and (suspected) exposure to environmental tobacco smoke (acute) (chronic); Z79.82 Long term (current) use of aspirin; Z79.890 Hormone replacement therapy; Z79.899 Other long term (current) drug therapy; Z96.642 Presence of left artificial hip joint
CPT/HCPCS: 36415; 71045; 80048; 80053; 80061; 83036; 83605; 83615; 83735; 83880; 84145; 84439; 84443; 84484; 85025; 85027; 85379; 85610; 85730; 86140; 87636; 93005; 93306; 94640; 94664; 94667; 94668; 94760; 96365; 96366; 96367; 96372; 96375; 99285